=== PATIENT | male | born 1955 | race Caucasian/White ===

== ENCOUNTER 2020-08-05 21:48 | Emergency (ER) | payer MEDICARE, BC, SELFPAY ==
[2020-08-05 21:54] VITALS: BP 185/83; PULSE 85; RESP 14; TEMP 37.3; O2SAT 76; BMI 57.3
--- NOTE | 2020-08-05 22:03 | W.ED.SOB ---
HPI - SOB/Dyspnea General: Chief Complaint: Shortness of Breath/Dyspnea Stated Complaint: elevated hr Time Seen by Provider: 08/05/20 22:01 Source: patient Mode of arrival: ambulatory Limitations: no limitations History of Present Illness: HPI Narrative: 65-year-old male states that he was checking his heart rate tonight and it was in the 140s. He is having some palpitations want to have it checked out. When patient arrived he was 76% on room air. He states he wears 2 L at home especially at night. He denies any fever. Denies any cough. He denies any chest pain. Denies any worsening improving factors. MD elicited complaint: shortness of breath Associated symptoms: Reports palpitations; Deny abdominal pain, fever(s), nausea or vomiting Review of Systems Const: Denies: fever(s), chills, body aches or change in appetite Eyes: Denies: blurry vision or eye discomfort ENMT: Denies: throat pain or dental pain Card: Reports: palpitations Resp: Denies: dyspnea GI: Denies: abdominal pain, nausea, vomiting or diarrhea : Denies: dysuria Musc: Denies: neck pain or back pain Skin/Breast: Denies: rash Neuro: Denies: headache(s) Psych: Denies: depression Eugenio/Lymph: Denies: easy bruising All/Imm: Denies: urticaria Physical Exam Const: COMMON NORMALS: no acute distress, patient oriented x3 and healthy appearing HENMT: COMMON NORMALS: normocephalic and atraumatic HEAD & SCALP: normocephalic and atraumatic Eye: COMMON NORMALS: Equal, round and reactive pupils present and EOMs intact bilaterally PUPIL: Yes Equal, round and reactive pupils present Neck/C-Spine: COMMON NORMALS: full ROM and supple Chest: COMMONS NORMALS: normal inspection of the chest and normal palpation of entire chest wall Resp: COMMON NORMALS: normal respiratory effort, No retractions, No use of accessory muscles and clear to auscultation bilaterally AUSCULTATION: clear to auscultation bilaterally Cardio: COMMON NORMALS: regular rate, regular rhythm and No murmurs present (Cardio) RATE: regular rate RHYTHM: regular rhythm GI: COMMON NORMALS: Normal to inspection, nondistended, normoactive bowel sounds present, Soft to palpation, non-tender and no masses PALPATION: Yes Soft to palpation Extremity: COMMON NORMALS: normal to inspection and full ROM Neuro: COMMON NORMALS: patient oriented x3, moves all extremities and no focal motor deficits Psych: COMMON NORMALS: mental status grossly normal, Normal thought process present and cooperative THOUGHT PROCESS: Normal thought process present Skin: COMMON NORMALS: no rashes or lesions noted and no wounds GENERAL SKIN EXAM: no rashes or lesions noted Course Vital Signs: Vital signs: Vital Signs Temperature 99.1 F 08/05/20 21:54 Pulse Rate 72 08/06/20 01:30 Respiratory Rate 16 08/06/20 01:30 Blood Pressure 107/87 08/06/20 01:30 Pulse Oximetry 91 08/06/20 01:30 MDM - SOB/Dyspnea MDM Narrative: Medical decision making narrative: Patient presents here with palpitations originally. Patient was found to be hypoxic here. Patient has had to wear oxygen in the past and has a concentrator at home. He states he wears oxygen at night. He recently had Covid not believe he has a post Covid hypoxia and possible slight pneumonitis. His x-ray looked clear here. Patient given Decadron will prescribe him doxycycline. I did offer him admission but he states he feels improved and does not want to stay. He is doing well here on 2 to 3 L of oxygen he is to wear that at home at all times. He does have a pulse ox at home I informed if he has any hypoxia or increasing shortness of breath he is return immediately. He understands agrees to plan. He is to follow-up PCP in 2 to 4 days. Lab Data: Labs: Lab Results 08/05/20 08/05/20 08/05/20 Range/Units 22:40 22:40 22:40 WBC 8.9 (4.0-10.0) 10^3/ uL RBC 5.56 H (4.1-5.3) 10^6/u L Hgb 16.1 (11.7-16.6) g/dL Hct 52.2 H (42.0-52.0) % MCV 93.9 (80-94) fL MCH 29.0 (28.0-34.0) pg MCHC 30.8 (30.0-36.0) g/dL RDW 16.3 H (12.1-15.1) % Plt Count 167 (130-400) 10^3/c mm MPV 12.3 H (7.4-10.4) fL Neut % (Auto) 60.5 % Lymph % (Auto) 24.9 % Nuckolls % (Auto) 12.4 % Eos % (Auto) 1.6 % Baso % (Auto) 0.3 % Neut # (Auto) 5.35 (1.8-7.7) 10^3/u L Lymph # (Auto) 2.2 (0.8-4.8) 10^3/u L Nuckolls # (Auto) 1.1 H (0.2-0.9) 10^3/u L Eos # (Auto) 0.1 (0.0-0.8) 10^3/u L Baso # (Auto) 0.0 (0.0-0.1) 10^3/u L Nucleated RBC % (a uto) 0 % Nucleated RBCs # 0.0 /100WBC PT 13.10 (12.1-14.9) SECO NDS INR 0.96 (0.8-1.2) D-Dimer 0.41 (0-0.59) ug/mIFE U Specimen Type Sample Site ABG pH (7.35-7.45) ABG pCO2 (35-45) mmHg ABG pO2 (80.0-100.0) mmH g ABG HCO3 (22-26) mmol/L ABG Base Excess (-2.0-2.0) mmol/ L Ariel Test Hematocrit (42-52) % O2 Delivery Device O2 Liters/Min % Electronics Research Engineer ID Sodium 143 (136-145) mmol/L Potassium 4.1 (3.5-5.1) mmol/L Chloride 104 (98-107) mmol/L Carbon Dioxide 32 H (22-29) mmol/L Anion Gap 11.1 (5-19) BUN 15 (8-23) mg/dL Creatinine 0.9 (0.7-1.2) mg/dL GFR Calculation 84.7 L (90-130) mL/min Glucose 118 H (65-115) mg/dL Calculated Osmolal ity 298 H (285-295) mOsm/k g Calcium 8.8 (8.5-10.5) mg/dL Total Bilirubin 0.3 (0.15-1.2) mg/dL AST 18 (0-40) U/L ALT 19 (0-41) U/L Alkaline Phosphata se 54 (40-130) IU/L Troponin T Baselin e (0-15) ng/L Troponin T 120 Min [place] (0-15) ng/L Delta Troponin T (0-10) ABS# NT-Pro-B Natriuret Pep 394 H (0-125) pg/mL Total Protein 6.5 L (6.6-8.7) g/dL Albumin 3.7 (3.5-5.2) g/dL Globulin 2.8 (1.3-4.6) g/dL SARS-CoV-2 Ag (Rap id) (Negative) 08/05/20 08/05/20 08/06/20 Range/Units 22:40 22:49 00:10 WBC (4.0-10.0) 10^3/ uL RBC (4.1-5.3) 10^6/u L Hgb (11.7-16.6) g/dL Hct (42.0-52.0) % MCV (80-94) fL MCH (28.0-34.0) pg MCHC (30.0-36.0) g/dL RDW (12.1-15.1) % Plt Count (130-400) 10^3/c mm MPV (7.4-10.4) fL Neut % (Auto) % Lymph % (Auto) % Nuckolls % (Auto) % Eos % (Auto) % Baso % (Auto) % Neut # (Auto) (1.8-7.7) 10^3/u L Lymph # (Auto) (0.8-4.8) 10^3/u L Nuckolls # (Auto) (0.2-0.9) 10^3/u L Eos # (Auto) (0.0-0.8) 10^3/u L Baso # (Auto) (0.0-0.1) 10^3/u L Nucleated RBC % (a uto) % Nucleated RBCs # /100WBC PT (12.1-14.9) SECO NDS INR (0.8-1.2) D-Dimer (0-0.59) ug/mIFE U Specimen Type Sample Site ABG pH (7.35-7.45) ABG pCO2 (35-45) mmHg ABG pO2 (80.0-100.0) mmH g ABG HCO3 (22-26) mmol/L ABG Base Excess (-2.0-2.0) mmol/ L Ariel Test Hematocrit (42-52) % O2 Delivery Device O2 Liters/Min % Electronics Research Engineer ID Sodium (136-145) mmol/L Potassium (3.5-5.1) mmol/L Chloride (98-107) mmol/L Carbon Dioxide (22-29) mmol/L Anion Gap (5-19) BUN (8-23) mg/dL Creatinine (0.7-1.2) mg/dL GFR Calculation (90-130) mL/min Glucose (65-115) mg/dL Calculated Osmolal ity (285-295) mOsm/k g Calcium (8.5-10.5) mg/dL Total Bilirubin (0.15-1.2) mg/dL AST (0-40) U/L ALT (0-41) U/L Alkaline Phosphata se (40-130) IU/L Troponin T Baselin e 6 (0-15) ng/L Troponin T 120 Min [place] 7.30 (0-15) ng/L Delta Troponin T 1.30 (0-10) ABS# NT-Pro-B Natriuret Pep (0-125) pg/mL Total Protein (6.6-8.7) g/dL Albumin (3.5-5.2) g/dL Globulin (1.3-4.6) g/dL SARS-CoV-2 Ag (Rap id) Negative (Negative) 08/06/20 Range/Units 01:40 WBC (4.0-10.0) 10^3/ uL RBC (4.1-5.3) 10^6/u L Hgb (11.7-16.6) g/dL Hct (42.0-52.0) % MCV (80-94) fL MCH (28.0-34.0) pg MCHC (30.0-36.0) g/dL RDW (12.1-15.1) % Plt Count (130-400) 10^3/c mm MPV (7.4-10.4) fL Neut % (Auto) % Lymph % (Auto) % Nuckolls % (Auto) % Eos % (Auto) % Baso % (Auto) % Neut # (Auto) (1.8-7.7) 10^3/u L Lymph # (Auto) (0.8-4.8) 10^3/u L Nuckolls # (Auto) (0.2-0.9) 10^3/u L Eos # (Auto) (0.0-0.8) 10^3/u L Baso # (Auto) (0.0-0.1) 10^3/u L Nucleated RBC % (a uto) % Nucleated RBCs # /100WBC PT (12.1-14.9) SECO NDS INR (0.8-1.2) D-Dimer (0-0.59) ug/mIFE U Specimen Type Arterial Sample Site Radial, left ABG pH 7.34 L (7.35-7.45) ABG pCO2 58.1 H (35-45) mmHg ABG pO2 79.8 L (80.0-100.0) mmH g ABG HCO3 31.4 H (22-26) mmol/L ABG Base Excess 3.5 H (-2.0-2.0) mmol/ L Ariel Test Pos Hematocrit 52.8 H (42-52) % O2 Delivery Device Nc O2 Liters/Min 3.0 % Electronics Research Engineer ID [email or web address] Sodium (136-145) mmol/L Potassium (3.5-5.1) mmol/L Chloride (98-107) mmol/L Carbon Dioxide (22-29) mmol/L Anion Gap (5-19) BUN (8-23) mg/dL Creatinine (0.7-1.2) mg/dL GFR Calculation (90-130) mL/min Glucose (65-115) mg/dL Calculated Osmolal ity (285-295) mOsm/k g Calcium (8.5-10.5) mg/dL Total Bilirubin (0.15-1.2) mg/dL AST (0-40) U/L ALT (0-41) U/L Alkaline Phosphata se (40-130) IU/L Troponin T Baselin e (0-15) ng/L Troponin T 120 Min [place] (0-15) ng/L Delta Troponin T (0-10) ABS# NT-Pro-B Natriuret Pep (0-125) pg/mL Total Protein (6.6-8.7) g/dL Albumin (3.5-5.2) g/dL Globulin (1.3-4.6) g/dL SARS-CoV-2 Ag (Rap id) (Negative) Imaging Data^: CXR: Attestation: I personally reviewed and interpreted this imaging study as follows: My impression: no acute abnormality EKG Data^: EKG 1: Attestation: I personally reviewed and interpreted this EKG as follows: EKG Interpretation Date: 08/05/20 EKG interpretation time: 21:58 Interpretation: nsr hr [address] or t wave abnormalities qrs 102 qtc 391 EKG 2: Attestation: I personally reviewed and interpreted this EKG as follows: EKG Interpretation Date: 08/06/20 EKG interpretation time: 00:15 Interpretation: nsr hr [address] or t wave abnormalities qrs 102 qtc 366 Discharge Plan Discharge Patient Disposition: Home Clinical Impression: Palpitation, Hypoxia Condition: Stable Prescriptions: New doxycycline hyclate 100 mg capsule 100 mg PO BID 7 Days Qty: 14 RF: 0 Discharge Orders: Discharge ED (Routine); Ordered 08/06/20 Ordered By: Ramiro Monzon Other Ambulatory Orders: DME: Oxygen (Order) Location: None Selected Ordered By: Ramiro Monzon Referrals: Iglesia Rodriguez MD [Primary Care Provider] - Discharge Diet: Advance as tolerated Discharge Activity: Resume usual activity Patient Instructions: Palpitations (ED), Hypoxia (ED) Coding Level of Care Code ED Set Designer for Chg 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
--- NOTE | 2020-08-05 22:07 | XR_ITS ---
WS: [id number] Exam: XR chest 1V portable [id number] Date/Time of Exam: 08/05/2020 10:12 PM Reason For Exam: sob Comparison 05/18/2019. The heart is enlarged but unchanged in size. There are chronic pulmonary changes in the right base. N o acute infiltrates are noted. No pleural effusions. The mediastinum and bony thorax are unremarkable . XR/XR chest 1V portable [id number] IMPRESSION: 1. Cardiac enlargement unchanged. 2. Chronic changes in the right base. No acute process noted at this time.
--- NOTE | 2020-08-05 22:08 | ECG_ITS ---
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 Measurements Intervals [place] Rate: 63 P: 20 SC: 140 QRS: 8 QRSD: 93 T: 51 QT: 410 QTc: 422 Interpretive Statements SINUS RHYTHM LEFT VENTRICULAR HYPERTROPHY AND ST-T CHANGE [VOLTAGE CRITERIA PLUS ST/T ABNORMALITY] Compared to ECG 08/06/2020 00:15:49 Left ventricular hypertrophy now present ST (T wave) deviation now present Myocardial infarct finding no longer present Electronically Signed On 08-10-2020 15:29:17 RESIDENTIAL SUPPORT WORKER by Junito Navarro M.D. [email or web address] [email or web address]/store/[id number]
[2020-08-05 23:12] LABS: Basophils % 0.3 %; Eosinophils # 0.1 10^3/uL (0.0-0.8); Eosinophils % 1.6 %; Hematocrit 52.2 % (42.0-52.0); Hemoglobin 16.1 g/dL (11.7-16.6); Lymphocytes # 2.2 10^3/uL (0.8-4.8); Lymphocytes % 24.9 %; Mean Corpuscular HGB Conc 30.8 g/dL (30.0-36.0); Mean Corpuscular Volume 93.9 fL (80-94); Mean Platelet Volume 12.3 fL (7.4-10.4); Monocytes # 1.1 10^3/uL (0.2-0.9); Monocytes % 12.4 %; Neutrophils # 5.35 10^3/uL (1.8-7.7); Neutrophils % 60.5 %; Nucleated Red Blood Cells % 0 %; Platelet Count 167 10^3/cmm (130-400); Red Blood Count 5.56 10^6/uL (4.1-5.3); Red Cell Distribution Width 16.3 % (12.1-15.1); White Blood Count 8.9 10^3/uL (4.0-10.0)
[2020-08-05 23:24] LABS: INR 0.96 (0.8-1.2)
[2020-08-05 23:38] LABS: Troponin(5th) Baseline 6 ng/L (0-15)
[2020-08-05 23:39] LABS: SARS Covid-2 Antigen Negative (Negative)
[2020-08-05 23:45] LABS: D Dimer 0.41 ug/mIFEU (0-0.59)
[2020-08-05 23:47] LABS: Alanine Aminotransferase 19 U/L (0-41); Albumin Level 3.7 g/dL (3.5-5.2); Alkaline Phosphatase 54 IU/L (40-130); Anion Gap 11.1 (5-19); Aspartate Amino Transferase 18 U/L (0-40); Blood Urea Nitrogen 15 mg/dL (8-23); Calcium 8.8 mg/dL (8.5-10.5); Carbon Dioxide 32 mmol/L (22-29); Chloride 104 mmol/L (98-107); Globulin 2.8 g/dL (1.3-4.6); Glomerular Filtration Rate 84.7 mL/min (90-130); Glucose 118 mg/dL (65-115); NT Pro B Type Natriuretic Pept 394 pg/mL (0-125); Osmolality Calculated 298 mOsm/kg (285-295); Potassium 4.1 mmol/L (3.5-5.1); Sodium 143 mmol/L (136-145); Total Bilirubin 0.3 mg/dL (0.15-1.2); Total Protein 6.5 g/dL (6.6-8.7)
[2020-08-05 23:54] VITALS: BP 128/71; PULSE 78; RESP 21; O2SAT 94
--- NOTE | 2020-08-06 00:08 | ECG_ITS ---
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 Measurements Intervals [place] Rate: 77 P: 42 [place]: 182 QRS: 75 QRSD: 102 T: 1 QT: 334 QTc: 380 Interpretive Statements SINUS RHYTHM POSSIBLE ANTERIOR MYOCARDIAL INFARCTION , OF INDETERMINATE AGE [30 ms Q WAVE IN V3/V4, OR R < 0.2 mV IN V4] Compared to ECG 05/18/2019 20:51:50 Sinus bradycardia no longer present T-wave abnormality no longer present Possible ischemia no longer present Myocardial infarct finding still present Electronically Signed On 08-06-2020 17:13:39 WHEAT COMBINE DRIVER by Junito Navarro M.D. [email or web address]/store/[id number]
[2020-08-06 00:15] VITALS: BP 123/76; PULSE 76; RESP 21; O2SAT 93
[2020-08-06 01:00] VITALS: BP 127/75; PULSE 77; RESP 22; O2SAT 94
[2020-08-06 01:30] VITALS: BP 107/87; PULSE 72; RESP 16; O2SAT 91
[2020-08-06] MEDS: dexamethasone 10 mg/mL INJ IVP (01:31)
[2020-08-06 01:45] LABS: ABG PCO2 58.1 mmHg (35-45); ABG PH Result 7.34 (7.35-7.45); Arterial Blood Gas Hematocrit 52.8 % (42-52); Base Excess ABG 3.5 mmol/L (-2.0-2.0); Blood Gas Allen Test Pos; Blood Gas Sample Site Radial, left; Blood Gas Sample Type Arterial; HCO3 ABG 31.4 mmol/L (22-26); Oxygen Device NC; PO2 ABG 79.8 mmHg (80.0-100.0)
[2020-08-06 02:01] VITALS: BP 107/87; PULSE 73; RESP 26; TEMP 36.6; O2SAT 93
== END 2020-08-06 02:01 | disposition home or self-care (01) ==
PROVIDERS: Emergency Provider Emergency Medicine; PCP Family Medicine
DX: R00.2 Palpitations (principal); R09.02 Hypoxemia
CPT/HCPCS: 12345; 36600; 71045; 80053; 82803; 83880; 84484; 85025; 85378; 85610; 87426; 93005; 96374; 99283; 99284; J1100

== ENCOUNTER → 2020-09-06 14:46 | Outpatient (BNVA) | payer MEDICARE, BC, SELFPAY | PROVIDERS: PCP Family Medicine; Visit Provider Internal Medicine Pulmonary Disease | DX: Z20.822 Contact with and (suspected) exposure to COVID-19 (principal); R09.02 Hypoxemia | CPT/HCPCS: 87635 ==

== ENCOUNTER 2020-09-10 07:49 | Outpatient (CLI) | payer MEDICARE, BC, SELFPAY ==
--- NOTE | 2020-09-10 08:45 | USCV_ITS ---
Herson Ma Age: 65 Gender: M : 1955 Exam Date: 09/10/2020 08:10 Ordering Phys: Joby Jones MD Technologist: Jennifer Mayfield Exam Location: [facility] [place] Indication: LV FUNCTION AND PULMONARY ARTERY PRESSURE BP: / HR: 66 Rhythm: Sinus Technical Quality: Poor because of body habitus MEASUREMENTS (Male / Female) Normal Values 2D ECHO LV Diastolic Diameter PLAX 5.6 cm 4.2 - 5.9 / 3.9 - 5.3 cm LV Systolic Diameter PLAX 4.4 cm IVS Diastolic Thickness 0.9 cm 0.6 - 1.0 / 0.6 - 0.9 cm IVS Systolic Thickness 1.1 cm LVPW Diastolic Thickness 1.1 cm 0.6 - 1.0 / 0.6 - 0.9 cm LVPW Systolic Thickness 1.7 cm LVOT Diameter 2.0 cm LV Ejection Fraction 2D Teich 42.8 % LA Diameter 5.5 cm LA Width 3.3 cm LA Height 6.2 cm RA Width 2.4 cm RA Height 5.1 cm M-MODE LV Diastolic Diameter MM 8.9 cm 4.2 - 5.9 / 3.9 - 5.3 cm LV Systolic Diameter MM 6.3 cm LV Ejection Fraction MM Teich 53.2 % IVS Diastolic Thickness MM 0.9 cm 0.6 - 1.0 / 0.6 - 0.9 cm IVS Systolic Thickness MM 1.9 cm LVPW Diastolic Thickness MM 1.1 cm 0.6 - 1.0 / 0.6 - 0.9 cm LVPW Systolic Thickness MM 2.9 cm Aortic Annulus Diameter 3.5 cm LA Ao Ratio MM 2.0 MV E Point Septal Separation 0.9 cm DOPPLER AV Peak Velocity 152.0 cm/s LVOT Peak Velocity 79.0 cm/s AV Area Cont Eq vti 1.4 cm squared AV Area Cont Eq pk 1.7 cm squared MV Area PHT 2.2 cm squared Mitral E to A Ratio 1.3 MV E' Velocity 59.0 cm/s TR Peak Velocity 210.0 cm/s TR Peak Gradient 17.6 mmHg TV Peak E Velocity 62.0 cm/s PV Peak Velocity 56.0 cm/s RV Acceleration Time 0.1 s RV Ejection Time 0.2 s RV AcT/ET 0.3 FINDINGS Left Ventricle Possibly normal LV size ejection fraction (visual). Segmental wall motion analysis difficult. Right Ventricle Possibly of normal size Right Atrium Right atrium not well visualized. Left Atrium Possibly of normal size Mitral Valve No gross abnormalities noted Aortic Valve Thickened aortic valve. Tricuspid Valve Trace to mild tricuspid valve regurgitation. Pulmonic Valve Pulmonic valve not well visualized. Pericardium No pericardial effusion. Aorta Normal aortic annulus size. CONCLUSIONS Possibly normal LV size ejection fraction (visual)-55%. Thickened aortic valve. Trace to mild tricuspid valve regurgitation. No pericardial effusion. The right ventricle appears to be of normal size Could not calculate the PA pressure because of the poor Doppler signals Technically very difficult study because of the poor ultrasonic window Dr Don Tee MD [facility] (Electronically Signed) Final Date: 11 September 2020 06:05 S
--- NOTE | 2020-09-10 14:02 | PFTS_ITS ---
Date of Study:09/10/20 Date of Dictation: 09/11/20 MECHANICS: Postbronchodilator forced vital capacity (FVC) is reduced 49%. Postbronchodilator forced expiratory volume in one second (FEV1) is severely reduced 47%. FEV1/FVC is reduced. There is no significant response to bronchodilators FLOW VOLUME LOOP: Sloping of the expiratory limb suggestive of airway obstruction . LUNG VOLUMES: Not measured DIFFUSING CAPACITY FOR CARBON MONOXIDE: Mildly reduced 68% . INTERPRETATION: The spirometry suggestive of severe obstructive ventilatory defect. Lung volumes not measured. There is no significant response to bronchodilators. Mild gas transfer. Please correlate clinically MTDD
== END 2020-09-10 07:50 | disposition home or self-care (01) ==
LOC: RAD 07:51 → RT 10:54
PROVIDERS: PCP Family Medicine; Visit Provider Internal Medicine Pulmonary Disease
DX: R09.02 Hypoxemia (principal); I08.2 Rheumatic disorders of both aortic and tricuspid valves
CPT/HCPCS: 93306; 94060; 94618; 94729; J7611

== ENCOUNTER 2020-10-02 20:00 | Outpatient (CLI) | payer MEDICARE, BC, SELFPAY | END 2020-10-02 20:01 | disposition home or self-care (01) | LOC: SLEEP 10-03 08:28 | PROVIDERS: PCP Family Medicine; Visit Provider Internal Medicine Pulmonary Disease | DX: G47.33 Obstructive sleep apnea (adult) (pediatric) (principal) | CPT/HCPCS: 95811 ==

== ENCOUNTER → 2020-10-17 16:24 | Outpatient (BNVA) | payer MEDICARE, BC, SELFPAY | PROVIDERS: PCP Family Medicine; Visit Provider Internal Medicine Cardiovascular Disease | DX: I50.33 Acute on chronic diastolic (congestive) heart failure (principal); R09.02 Hypoxemia; R06.02 Shortness of breath; R94.31 Abnormal electrocardiogram [ECG] [EKG]; I48.91 Unspecified atrial fibrillation | CPT/HCPCS: 80048; 83880 ==

== ENCOUNTER 2020-11-20 20:00 | Outpatient (CLI) | payer MEDICARE, BC, SELFPAY | END 2020-11-20 20:01 | disposition home or self-care (01) | LOC: SLEEP 11-21 09:25 | PROVIDERS: PCP Family Medicine; Visit Provider Internal Medicine Pulmonary Disease | DX: G47.33 Obstructive sleep apnea (adult) (pediatric) (principal) | CPT/HCPCS: 95811 ==

== ENCOUNTER 2021-03-13 20:02 | Emergency (ER) | payer MEDICARE, BC, SELFPAY ==
--- NOTE | 2021-03-13 20:03 | XRR_ITS ---
PROCEDURE INFORMATION: Exam: XR Chest Exam date and time: 03/13/2021 8:03 PM Age: 65 years old Clinical indication: Shortness of breath; Patient HX: SOB; Additional info: Cp TECHNIQUE: Imaging protocol: XR of the chest. Views: 1 view. COMPARISON: CR XR chest 1V portable [id number] 08/05/2020 10:09 PM FINDINGS: Lungs: Similar linear scarring at the right lung base. No focal consolidation. Pleural spaces: Unremarkable. No pleural effusion. No pneumothorax. Heart/Mediastinum: Similar mild cardiomegaly. Bones/joints: Visualized osseous structures are intact. XR/XR chest 1V portable [id number] IMPRESSION: Stable exam, no acute findings.
[2021-03-13 20:06] VITALS: BP 125/75; PULSE 96; RESP 24; TEMP 36.8; O2SAT 90; BMI 60.3
[2021-03-13 20:28] VITALS: BP 135/113; PULSE 84; RESP 22; O2SAT 93
[2021-03-13 20:44] LABS: Basophils % 0.3 %; Eosinophils # 0.1 10^3/uL (0.0-0.8); Eosinophils % 1.3 %; Hematocrit 49.1 % (42.0-52.0); Hemoglobin 15.5 g/dL (11.7-16.6); Lymphocytes # 2.3 10^3/uL (0.8-4.8); Lymphocytes % 29.2 %; Mean Corpuscular HGB Conc 31.6 g/dL (30.0-36.0); Mean Corpuscular Hemoglobin 31.4 pg (28.0-34.0); Mean Corpuscular Volume 99.6 fl (80-94); Mean Platelet Volume 10.7 fL (7.4-10.4); Monocytes # 0.8 10^3/uL (0.2-0.9); Monocytes % 10.4 %; Neutrophils % 58.2 %; Nucleated Red Blood Cells % 0 %; Platelet Count 171 10^3/cmm (130-400); Red Blood Count 4.93 10^6/uL (4.1-5.3); Red Cell Distribution Width 13.4 % (12.1-15.1); White Blood Count 7.9 10^3/uL (4.0-10.0)
[2021-03-13] MEDS: metoprolol tartrate 50 mg Tablet PO (20:44)
--- NOTE | 2021-03-13 20:50 | ED_ITS ---
HPI - General Adult General: Chief complaint: General Medical Stated complaint: cp Time Seen by Provider: 03/13/21 20:25 Source: patient Mode of arrival: ambulatory Limitations: no limitations History of Present Illness: HPI narrative: 65-year-old male has a long history of A. fib and states that last month his regulatory affairs intern decreased his metoprolol from 100 mg to 50 she is concerned that he was becoming too bradycardic. He states that since then he has had episodes of palpitations. He states that tonight his heart rate was in the 130s he can feel it racing. He denies any chest pain denies any shortness of breath. Denies any worsening improving factors. Associated symptoms: Reports palpitations; Deny chest pain, dyspnea, headache(s), nausea, rash or vomiting Review of Systems Const: Denies: fever(s), chills, body aches or change in appetite Eyes: Denies: blurry vision or eye discomfort ENMT: Denies: throat pain or dental pain Card: Reports: palpitations; Denies: chest pain Resp: Denies: dyspnea GI: Denies: abdominal pain, nausea, vomiting or diarrhea : Denies: dysuria Musc: Denies: neck pain or back pain Skin/Breast: Denies: rash Neuro: Denies: headache(s) Psych: Denies: depression Eugenio/Lymph: Denies: easy bruising All/Imm: Denies: urticaria PFSH ED PFSH: Medical History Benign essential hypertension GERD (gastroesophageal reflux disease) Hx of renal calculi Hx: recurrent pneumonia Peripheral edema Varicose veins of both legs with edema Surgical History History of repair of rotator cuff Family History Sister CAD (coronary artery disease) Cancer Lupus Casey-Stickler syndrome Dementia Lung disease Brother Stroke Denies family history of Diabetes Clotting disorder Chronic kidney disease (CKD) Suicide Anesthesia complication Bleeding disorder Social History Smoking and tobacco status: former smoker Quit status (tobacco): has quit using tobacco Year quit tobacco: 2002 cigars 29yrhx Second hand smoke exposure: No Smoking risk assessment/counseling performed?: Yes Alcohol intake: never Lives independently: Yes Household members: spouse Housing: House Marital status: service: No Current occupational status: employed Pets and animals: Yes History of recent travel: No Current gender identity: Male Physical Exam Const: COMMON NORMALS: no acute distress and patient oriented x3 NUTRITIONAL APPEARANCE: obese HENMT: COMMON NORMALS: normocephalic and atraumatic HEAD & SCALP: normocephalic and atraumatic Eye: COMMON NORMALS: Equal, round and reactive pupils present and EOMs intact bilaterally PUPIL: Yes Equal, round and reactive pupils present Neck/C-Spine: COMMON NORMALS: full ROM and supple Chest: COMMONS NORMALS: normal inspection of the chest and normal palpation of entire chest wall Resp: COMMON NORMALS: normal respiratory effort, No retractions, No use of accessory muscles and clear to auscultation bilaterally AUSCULTATION: clear to auscultation bilaterally Cardio: COMMON NORMALS: No murmurs present (Cardio) RATE: tachycardic RHYTHM: abnormal rhythm irregularly irregular GI: COMMON NORMALS: Normal to inspection, nondistended, normoactive bowel sounds present, Soft to palpation, non-tender and no masses PALPATION: Yes Soft to palpation Extremity: COMMON NORMALS: normal to inspection and full ROM Neuro: COMMON NORMALS: patient oriented x3, moves all extremities and no focal motor deficits Psych: COMMON NORMALS: mental status grossly normal, Normal thought process present and cooperative THOUGHT PROCESS: Normal thought process present Skin: COMMON NORMALS: no rashes or lesions noted and no wounds GENERAL SKIN EXAM: no rashes or lesions noted Course Vital Signs: Vital signs: Vital Signs Temperature 98.3 F 03/13/21 20:06 Pulse Rate 84 03/13/21 20:28 Respiratory Rate 22 H 03/13/21 20:28 Blood Pressure 135/113 03/13/21 20:28 Pulse Oximetry 93 03/13/21 20:28 MDM - General Adult MDM Narrative: Medical decision making narrative: Doing presents here with Rajesh guzman with RVR. Patient converted here with Cardizem and metoprolol he feels much improved. I will increase his metoprolol back to 100 he is to follow-up with his regulatory affairs intern next week. He is return if worsening. He understands agrees to plan. Lab Data: Labs: Lab Results 03/13/21 03/13/21 03/13/21 Range/Units 20:37 20:37 20:37 WBC 7.9 (4.0-10.0) 10^3/ uL RBC 4.93 (4.1-5.3) 10^6/u L Hgb 15.5 (11.7-16.6) g/dL Hct 49.1 (42.0-52.0) % MCV 99.6 H (80-94) fl MCH 31.4 (28.0-34.0) pg MCHC 31.6 (30.0-36.0) g/dL RDW 13.4 (12.1-15.1) % Plt Count 171 (130-400) 10^3/c mm MPV 10.7 H (7.4-10.4) fL Neut % (Auto) 58.2 % Lymph % (Auto) 29.2 % Dyer % (Auto) 10.4 % Eos % (Auto) 1.3 % Baso % (Auto) 0.3 % Neut # (Auto) 4.60 (1.8-7.7) 10^3/u L Lymph # (Auto) 2.3 (0.8-4.8) 10^3/u L Dyer # (Auto) 0.8 (0.2-0.9) 10^3/u L Eos # (Auto) 0.1 (0.0-0.8) 10^3/u L Baso # (Auto) 0.0 (0.0-0.1) 10^3/u L Nucleated RBC % (a uto) 0 % Nucleated RBCs # 0.0 /100WBC Sodium 143 (136-145) mmol/L Potassium 4.1 (3.5-5.1) mmol/L Chloride 101 (98-107) mmol/L Carbon Dioxide 33 H (22-29) mmol/L Anion Gap 13.1 (5-19) BUN 18 (8-23) mg/dL Creatinine 0.5 L (0.7-1.2) mg/dL GFR Calculation 166.9 H (90-130) mL/min Glucose 88 (65-115) mg/dL Calculated Osmolal ity 297 H (285-295) mOsm/k g Calcium 8.7 (8.5-10.5) mg/dL Total Bilirubin 0.3 (0.15-1.2) mg/dL AST 35 (0-40) U/L ALT 44 H (0-41) U/L Alkaline Phosphata se 51 (40-130) IU/L Troponin T Baselin e 7 (0-15) ng/L Total Protein 6.9 (6.6-8.7) g/dL Albumin 4.1 (3.5-5.2) g/dL Globulin 2.8 (1.3-4.6) g/dL Imaging Data^: CXR: Attestation: I personally reviewed and interpreted this imaging study as follows: Radiologist's impression: [id number] [address] XRay Report Signed Patient: Herson Ma Unit #: [id number] : 1955 Age/Sex: 65 / M ADM Date: 03/13/21 Loc: ER Room/Bed: Attending Dr: Ordering Provider/Ordering MD: Ramiro Monzon MD Date of Service: 03/13/21 Procedure(s): XR chest 1V portable [id number] Accession Number(s): [id number] Report Number: [id number] PROCEDURE INFORMATION: Exam: XR Chest Exam date and time: 03/13/2021 8:03 PM Age: 65 years old Clinical indication: Shortness of breath; Patient HX: SOB; Additional info: Cp TECHNIQUE: Imaging protocol: XR of the chest. Views: 1 view. COMPARISON: CR XR chest 1V portable [id number] 08/05/2020 10:09 PM FINDINGS: Lungs: Similar linear scarring at the right lung base. No focal consolidation. Pleural spaces: Unremarkable. No pleural effusion. No pneumothorax. Heart/Mediastinum: Similar mild cardiomegaly. Bones/joints: Visualized osseous structures are intact. XR/XR chest 1V portable [id number] IMPRESSION: Stable exam, no acute findings. Dictated By: Balbir Antonio DO Signed By: Balbir Antonio DO Signed Date/Time: 03/13/212031 DD/ 29 EKG Data^: EKG 1: Attestation: I personally reviewed and interpreted this EKG as follows: EKG interpretation date: 03/13/21 EKG interpretation time: 20:24 Interpretation: afib rvr hr [address] or t wave abnormalities qrs 107 qtc 367 Computer generated interpretation: Chest X-Ray 03/13/21 20:03 IMPRESSION: Stable exam, no acute findings. Discharge Plan Discharge Patient Disposition: Home Clinical Impression: Atrial fibrillation Qualifiers: Atrial fibrillation type: unspecified Qualified Code(s): I48.91 - Unspecified atrial fibrillation Condition: Stable Prescriptions: Changed metoprolol succinate 50 mg tablet extended release 24 hr 100 mg PO DAILY Qty: 30 RF: 3 No Action esomeprazole magnesium 40 mg capsule,delayed release(DR/EC) 80 mg PO DAILY RF: 0 paroxetine HCl 20 mg tablet 20 mg PO DAILY RF: 0 simethicone [Gas Relief (simethicone)] 180 mg capsule 180 mg PO BID PRNRF: 0 ciclopirox-salicylic acid 0.77-2 % shampoo topical RF: 0 fluticasone propionate 50 mcg/actuation spray,suspension 2 spray intranasal DAILY RF: 0 allopurinol 300 mg tablet 300 mg PO DAILY RF: 0 budesonide-formoterol [Symbicort] 80-4.5 mcg/actuation HFA aerosol inhaler 2 puff inhalation BID Qty: 10.2 RF: 3 magnesium 200 mg tablet 200 mg PO DAILY RF: 0 fluticasone propionate [Flonase Allergy Relief] 50 mcg/actuation spray,suspension 1 spray intranasal DAILY RF: 0 prednisolone acetate (PF) 1 % drops,suspension 1 drp ophthalmic (eye) BID RF: 0 elderberry fruit 200 mg capsule PO RF: 0 levocetirizine [Xyzal] 5 mg tablet 5 mg PO DAILY PRNRF: 0 cetirizine [Zyrtec] 10 mg tablet 5 mg PO DAILY PRNRF: 0 guaifenesin [Mucinex] 600 mg tablet extended release 12hr 600 mg PO Q12H PRNRF: 0 Eliquis 5 mg tablet 5 mg PO BID Qty: 60 RF: 5 Discharge Orders: Discharge ED (Routine); Ordered 03/13/21 Ordered By: Ramiro Monzon Referrals: Iglesia Rodriguez MD [Primary Care Provider] - Discharge Diet: Advance as tolerated Discharge Activity: Resume usual activity Patient Instructions: Atrial Fibrillation (ED) Coding Level of Care Code ED 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
[2021-03-13 21:02] LABS: Troponin(5th) Baseline 7 ng/L (0-15)
[2021-03-13 21:03] LABS: Alanine Aminotransferase 44 U/L (0-41); Albumin Level 4.1 g/dL (3.5-5.2); Alkaline Phosphatase 51 IU/L (40-130); Anion Gap 13.1 (5-19); Aspartate Amino Transferase 35 U/L (0-40); Blood Urea Nitrogen 18 mg/dL (8-23); Calcium 8.7 mg/dL (8.5-10.5); Carbon Dioxide 33 mmol/L (22-29); Chloride 101 mmol/L (98-107); Globulin 2.8 g/dL (1.3-4.6); Glomerular Filtration Rate 166.9 mL/min (90-130); Glucose 88 mg/dL (65-115); Osmolality Calculated 297 mOsm/kg (285-295); Potassium 4.1 mmol/L (3.5-5.1); Sodium 143 mmol/L (136-145); Total Bilirubin 0.3 mg/dL (0.15-1.2); Total Protein 6.9 g/dL (6.6-8.7)
[2021-03-13 21:39] VITALS: BP 125/81; PULSE 84; RESP 22; TEMP 36.8; O2SAT 93
== END 2021-03-13 21:40 | disposition home or self-care (01) ==
PROVIDERS: Emergency Provider Emergency Medicine; PCP Family Medicine
DX: I48.91 Unspecified atrial fibrillation (principal); Z79.01 Long term (current) use of anticoagulants; I10 Essential (primary) hypertension; Z87.891 Personal history of nicotine dependence
CPT/HCPCS: 71045; 80053; 84484; 85025; 96374; 99283; J3490

== ENCOUNTER → 2021-04-04 09:06 | Outpatient (BNVA) | payer MEDICARE, BC, SELFPAY | PROVIDERS: PCP Family Medicine; Visit Provider Internal Medicine Cardiovascular Disease | DX: R94.31 Abnormal electrocardiogram [ECG] [EKG] (principal); Z20.822 Contact with and (suspected) exposure to COVID-19 | CPT/HCPCS: 80048; 85025; 85610; 86850; 86900; 87635 ==

== ENCOUNTER 2021-04-09 07:39 | Day surgery (SDC) | payer MEDICARE, BC, SELFPAY ==
[2021-04-09] VITALS (18 sets, daily range): BP systolic 105–138; BP diastolic 58–80; PULSE 55–75; RESP 7–25; TEMP 36.1; O2SAT 90–95; BMI 59.0
--- NOTE | 2021-04-09 07:30 | XACV_ITS ---
Exam Room: 1 Ht: 183 cm Wt: 197 kg BSA: 3.28 m2 Gender: Male : 1955 Exam Priority: Routine Procedure(s): Procedure Description: Diagnostic procedure Procedure Description: Left Heart Catheterization Procedure Description: Left ventriculography Procedure Description: Coronary Angiography Randal MOSS; Diagnostic Cath Status: Elective Diagnostic Findings * The left main is a medium caliber vessel which was found to have an ostial eccentric narrowing of around 20%. No other significant stenotic lesions were noted. * Left anterior descending artery is a medium caliber vessel which appears to wrap around the LV apex. The artery was found to have mild diffuse irregular narrowing of around 20%. * The left circumflex artery is a medium caliber vessel which also was found to have diffuse intimal irregularities with no significant the stenotic lesions. * The right coronary artery is a medium to large caliber dominant vessel which also was found to have diffuse intimal irregularities in the mid and distal segments. Conclusions 1. This is a 66-year-old white male with history of hypertension, dyslipidemia, new onset of atrial fibrillation, presented with shortness of breath and some atypical chest discomfort. His EKG showed diffuse nonspecific ST-T changes. Because of his morbid obesity, the noninvasive studies were difficult to perform. For further evaluation of his coronary status, a cardiac catheterization was recommended. Patient underwent left heart catheterization with left and right coronary angiogram and LV angiogram today. Findings are as follows. 2. Mild diffuse coronary artery disease. Markedly elevated left ventricular end-diastolic pressure of 29mHg. Normal LV ejection fraction 55%. Recommendations * Continue current medical management and risk factor modification. Interventional RX Recommendation: none Diagnostic RX Recommendation: medical therapy and/or counseling LV EDP: 29 mmHg Ventriculography Ejection Fraction: 55.0 % Left Ventriculography Findings: * The LV gram was performed the JIMENES position. The LV cavity appears to be of normal size. The overall ejection fraction was around 55%. No significant mitral valve prolapse or mitral regurgitation. The LVEDP was 29 mmHg. Pressures Phase:Rest AO : 82 / 58 ( 70 ) @ 7:56:00 AM 95 / 65 ( 78 ) @ 8:02:00 AM 129 / 80 ( 99 ) @ 8:13:00 AM 127 / 76 ( 94 ) @ 8:13:00 AM LV : 132 / 13 / 28 @ 8:12:00 AM 136 / 13 / 31 @ 8:13:00 AM 135 / 13 / 30 @ 8:13:00 AM Valves Phase:DefaultPhase AV : 6.0 @ 9:34:32 AM AV Mean Gradient: 8.0 @ 9:34:32 AM Clinical Evaluation EBL: 5mL-10mL Procedural Details Procedure Consent Obtained. Pre-Procedure Time Out. Identified patient by full name and date of as verbalized by the patient/guarantor. Does the consent match the physician's order: Yes. Accurate & Complete Informed Consent: Yes. Inpatient/Outpatient History & Physical on Chart: Yes. If H&P is completed, is and addenduem needed: No; If yes, is the addendum complete: N/A. Relevant Radiology Images available: Yes. The risks, benefits, and alternatives of sedation and/or procedure were discussed by physician. The patient agrees to continue. Procedure started. [facility] Clinical Fraility Score: 5: Mildly Frail. Jewel Inserter Indications: Pre-operative Evaluation/Cardiac Arrythmia. Chest Pain Symptom Assessment: Atypical Angina. Cardiovascular Instability: No. Correct patient, site and procedure confirmed by cath team. PERRLA. Strong, equal hand pattern illustrator bilaterally. Lungs clear x 5 lobes. IV Site on Arrival: 20 gauge in the left forearm. IV Fluids: 0.9% NaCl at KVO. 0 mL infused prior to optical laboratory manager. Pre Procedural Pulses: bilateral dorsalis pedis was 3+. Pre Procedural Pulses: bilateral posterior tibial was 1+. Pre Procedural Pulses: bilateral radial was 3+. Oxygen started at 3liters/min via nasal canula. right groin was prepped with chloroprep then draped in the usual sterile fashion. right radial was prepped with chloroprep then draped in the usual sterile fashion. Physician notified. Baseline sample Acquired. HR: 68 BPM. Patient's daughter is in CPRU room #4. Dr. Tee will update after the procedure. Madelin Suero RN circulating. Equipment: 6F - Radial. Cardiac Cath Pack. ACIST Manifold Kit Model BT 2000. Heparinized Saline (2 units/mL), 1000 mL bag. Physician arrived. Physician scrubbed in. Immediate Pre-Procedure Time Out. Correct Patient: Yes; Correct Procedure: Yes; Correct Site: Yes; Correct Patient Position: Yes; Correct Supplies: Yes; Dried Flammable Prep: Yes; Blood Products Available: T & S completed pre procedure. Lidocaine 1% infiltrated to the right radial. Arterial access obtained. A 5 latvian William catheter in over the exchange wire. Multiple views taken of right coronary artery. Catheter redirected to the LCA, unable to cannulate. Catheter removed over the exchange wire. A 5 latvian TIG catheter in over the exchange wire. Multiple views taken of left coronary artery. Catheter removed over the exchange wire. A 5 latvian Angled Pig catheter in over the exchange wire. EDP Sample taken: LV 132/13,28; HR: 70 BPM; SpO2: 92%. LV gram performed in JIMENES @ 10 mL/second for a total of 30 mL. EDP Sample taken: LV 136/13,31; HR: 70 BPM; SpO2: 92%. Pullback taken: LV 135/13,30; AO 129/80(99); Mean: 8mmHg, Peak to Peak: 6mmHg, SEP: 19sec/min; HR: 72 BPM; SpO2: 92%. Catheter removed over the exchange wire. Physcian scrubbed out. TR band placed. Hemostasis obtained. Post Procedure: Pulses reassessed and unchanged. PERRLA. Strong, equal hand pattern illustrator bilaterally. No VTE prophylaxis required. Medication's Wasted: Lidocaine 1% = 18 mL. Medication's Wasted: Heparin = 1000 units. Medication's Wasted: Nitro = 49.8 mg. Total IV fluids: 78 mL. Post-op diagnosis: Mild CAD with LV diastolic dysfunction. Complications: none. Estimated blood loss: 5mL-10mL. Procedure completed. Patient transferred by wheelchair to 1st floor. Vital chart was stopped. Access Site Site: Right Radial artery Sheath Size: 6 Fr Hemostasis Success: Unsuccessful Procedure Medications Start: 8:50 AM Stop: 8:50 AM Medication: Versed Amount: 1 mg Route: I.V. Start: 8:50 AM Stop: 8:50 AM Medication: Fentanyl Amount: 50 mcg Route: I.V. Start: 8:50 AM Stop: 8:50 AM Medication: Versed Amount: 1 mg Route: I.V. Start: 8:50 AM Stop: 8:50 AM Medication: Fentanyl Amount: 25 mcg Route: I.V. Start: 8:50 AM Stop: 8:50 AM Medication: Verapamil Amount: 5 mg Route: I.A. Start: 8:51 AM Stop: 8:51 AM Medication: Nitrogylcerin Amount: 200 mcg Route: I.A. Start: 8:54 AM Stop: 8:54 AM Medication: Heparin Amount: 5000 units Route: I.V. I, the attending physician, have reviewed and verified all procedure medications. Yes, all medications given per verbal order History/Risk Factors Hypertension: Yes Dyslipidemia: No Peripheral Arterial Disease (PAD): No Myocardial Infarction (NH): No Obesity: Yes Renal Disease: No Tobacco Use: Former Prior Interventions PCI: No CABG: No Valve Surgery: No Report Signatures Finalized by Dr Don Tee MD [facility] on 04/09/2021 10:14 PM
[2021-04-09] MEDS: diphenhydrAMINE 50 mg Capsule PO (07:57)
--- NOTE | 2021-04-09 08:27 | W.PM.OPSUD ---
Surgery/Procedure H&P Update DATE OF PROCEDURE: April 09, 2021 DATE H&P PERFORMED: 03/31/21 H&P UPDATE INFORMATION: I have reviewed H&P completed within last 30 days, I have examined patient prior to procedure and No changes to prior documentation PREOP DIAGNOSIS: ASHD PRIMARY INDICATION FOR PROCEDURE: Atrial fibrillation/abnormal EKG/shortness of breath PLANNED PROCEDURE: Operation Date: 04/09/21 08:30 Proposed Procedures p Cardiac Catheterization(Left) - Don Tee MD PATIENT REASSESSED PRIOR TO SEDATION, WITH NO CHANGE NOTED: Yes PHYSICAL EXAM: alert, oriented x 3, clear to auscultation bilaterally and regular rate & rhythm (Irregularly irregular rhythm) AIRWAY EVAL/ANESTHESIA PLAN: normal airway, see other exam findings, ASA III, Monitored Anesthesia, Local Anesthesia, Risks, benefits & alternatives of sedation and/or procedure discussed and Patient agrees to continue as planned
[2021-04-09] MEDS: metoprolol succinate ER (24 HR) 50 mg Tablet PO (10:35)
[2021-04-09] MEDS: acetaminophen 325 mg Tablet 650 MG PO (12:09)
--- NOTE | 2021-04-09 12:58 | PC.NURSE ---
received into room 107 from manager labor relations at 0950.report received.pt is alert an awake.oriented x 4.right wrist with tr band on and inflated.right hand is warm to touch and with brisk capillary refill.palpable radial pulse noted distal to tr band..and no hematoma noted.instructed in activity restrictions and instructed to notify staff for any bleeding,pain,numbness..or for any concerns at all.pt verb understanding of instruction
--- NOTE | 2021-04-09 14:03 | PC.NURSE ---
tr band slowly deflated and finally removed at 1330.vss.no hematoma noted.right hand remains warm to touch and with brisk capillary refill.site dressed with 2x2 and secured with biocclusive drsg
--- NOTE | 2021-04-09 14:24 | PC.NURSE ---
discharge instructions given and explained.pt verb understanding of instructions.discharged via w/c to exit.son to drive pt home
== END 2021-04-09 14:28 | disposition home or self-care (01) ==
LOC: CCL 07:42 → CSU 08:22
PROVIDERS: PCP Family Medicine; Visit Provider Internal Medicine Cardiovascular Disease
DX: I48.91 Unspecified atrial fibrillation (principal); I25.10 Atherosclerotic heart disease of native coronary artery without angina pectoris; R94.31 Abnormal electrocardiogram [ECG] [EKG]; R06.02 Shortness of breath; I10 Essential (primary) hypertension; E78.5 Hyperlipidemia, unspecified; E66.01 Morbid (severe) obesity due to excess calories; Z68.43 Body mass index [BMI] 50.0-59.9, adult; Z87.891 Personal history of nicotine dependence
CPT/HCPCS: 36415; 93452; C1769; C1887; C1894; J1644; J2250; J3010; J3490; J7030; Q0163; Q9967

== ENCOUNTER → 2021-04-15 12:04 | Outpatient (BNVA) | payer MEDICARE, BC, SELFPAY | PROVIDERS: PCP Family Medicine; Visit Provider Nurse Practitioner Family | DX: I10 Essential (primary) hypertension (principal) | CPT/HCPCS: 80048 ==

== ENCOUNTER 2021-10-04 14:29 | Emergency (ER) | payer MEDICARE, BC, SELFPAY ==
[2021-10-04 14:56] VITALS: BP 137/84; PULSE 73; RESP 20; TEMP 36.7; O2SAT 93; BMI 47.6
--- NOTE | 2021-10-04 15:51 | ED_ITS ---
HPI - General Adult General: Chief complaint: General Medical Stated complaint: blood in stool Time Seen by Provider: 10/04/21 15:51 Source: patient Mode of arrival: ambulatory Limitations: no limitations History of Present Illness: 66-year-old male presents emergency room he had gastric bypass surgery earlier this week in [place]. He is complaining that he is felt well will have a bowel movement all week he feels full like he has to have 1 he evidently has tried suppositories tried manual disimpaction but is not been able to pass anything he has been straining to try to pass distillates caus es some abdominal discomfort because of his recent surgery. Because manipulation the rectal area he has passed a little bit of blood as well. He is not had any vomiting. He has not had any bloating he says otherwise when he is at rest he feels fine. Onset (ago): day(s) Location: abdomen Radiation: non-radiation Severity: mild Quality: aching Pain Consistency: intermittent Relieving factors: rest Exacerbating factors: other (Attempted bowel movements) Associated symptoms: Deny chest pain, confusion, cough, diaphoresis, decreased appetite, dyspnea, fevers/chills, headache(s), malaise, nausea, rash, palpitations, seizures, short of breath, syncope, vomiting or weakness Treatments prior to arrival: none Review of Systems Const: Reports: change in appetite and change in weight; Denies: fever(s), chills, body aches, malaise or diaphoresis Card: Denies: chest pain, palpitations or syncope Resp: Denies: dyspnea GI: Denies: nausea or vomiting : Denies: flank pain, difficulty urinating, dysuria, urinary frequency, urinary urgency, urinary hesitancy, difficulty starting urination or change in urine stream Skin/Breast: Denies: rash Neuro: Denies: headache(s) or confusion PFS ED PFSH: Medical History Benign essential hypertension GERD (gastroesophageal reflux disease) Hx of renal calculi Hx: recurrent pneumonia Peripheral edema Varicose veins of both legs with edema Surgical History History of repair of rotator cuff Family History Sister CAD (coronary artery disease) Cancer Lupus Casey-Stickler syndrome Dementia Lung disease Brother Stroke Denies family history of Diabetes Clotting disorder Chronic kidney disease (CKD) Suicide Anesthesia complication Bleeding disorder Social History Smoking and tobacco status: never smoked Quit status (tobacco): has quit using tobacco Year quit tobacco: 2001 cigars 29yrhx Second hand smoke exposure: No Smoking risk assessment/counseling performed?: Yes Alcohol intake: never Lives independently: Yes Household members: spouse Housing: House Marital status: service: No Current occupational status: employed Pets and animals: Yes History of recent travel: No Current gender identity: Male Physical Exam Const: GENERAL APPEARANCE: cooperative and comfortable ORIENTATION/CONSCIOUSNESS: Yes awake, Yes oriented to person, Yes oriented to place and Yes oriented to time HENMT: COMMON NORMALS: normocephalic, atraumatic and hearing grossly normal bilaterally HEAD & SCALP: normocephalic and atraumatic Resp: COMMON NORMALS: normal respiratory effort, No retractions, No use of accessory muscles and clear to auscultation bilaterally AUSCULTATION: clear to auscultation bilaterally Cardio: COMMON NORMALS: regular rate, regular rhythm and No murmurs present (Cardio) RATE: regular rate RHYTHM: regular rhythm GI: COMMON NORMALS: Soft to palpation and No hepatosplenomegaly present AUSCULTATION: Yes normoactive bowel sounds PALPATION: Yes Soft to palpation, No Tenderness to palpation present (GI), No Guarding due to palpation present (GI) and Yes No hepatosplenomegaly present Extremity: COMMON NORMALS: normal to inspection, capillary refill normal, no clubbing, cyanosis or edema, no calf tenderness and no pedal edema Neuro: SENSORIUM/ORIENTATION: Yes oriented to person, Yes oriented to place and Yes oriented to time Skin: COMMON NORMALS: no rashes or lesions noted GENERAL SKIN EXAM: no rashes or lesions noted Course Vital Signs: Vital signs: Vital Signs Temperature 98.1 F 10/04/21 16:23 Pulse Rate 71 10/04/21 16:23 Respiratory Rate 20 H 10/04/21 16:23 Blood Pressure 143/78 10/04/21 16:23 Pulse Oximetry 95 10/04/21 16:23 [facility] - General Adult Medical Decision Making Recommend moderate activity continued p.o. intake he can try warm fluids try to stimulate a bowel movement he can repeat the rectal suppository would avoid any enemas for now because of his recent surgery. Recommend that he contact his bariatric surgeon as soon as possible next week. It would be concerning if developed a fever nausea or vomiting but he has not had any that to this point. Medical Records I reviewed the patient's medical records. Discharge Plan Discharge Patient Disposition: Home Clinical Impression: Constipation by delayed colonic transit, S/P bariatric surgery Condition: Stable Prescriptions: No Action paroxetine HCl 20 mg tablet 20 mg PO DAILY 0RF simethicone [Gas Relief (simethicone)] 180 mg capsule 180 mg PO BID PRN (Reason: gas) 0RF ciclopirox-salicylic acid 0.77-2 % shampoo topical 0RF fluticasone propionate 50 mcg/actuation spray,suspension 2 spray intranasal DAILY 0RF Rx Instructions: administer into each nostril allopurinol 300 mg tablet 300 mg PO DAILY 0RF albuterol sulfate 2.5 mg /3 mL (0.083 %) solution for nebulization 2.5 mg inhalation Q6H PRN (Reason: shortness of breath or wheezing) 0RF topiramate 25 mg tablet 25 mg PO BID 0RF phentermine 15 mg capsule 15 mg PO DAILY 0RF omeprazole 40 mg capsule,delayed release(DR/EC) 40 mg PO DAILY 0RF finasteride 5 mg tablet 5 mg PO DAILY 0RF prednisolone acetate (PF) 1 % drops,suspension 1 drp ophthalmic (eye) BID 0RF elderberry fruit 200 mg capsule PO 0RF cetirizine [Zyrtec] 10 mg tablet 5 mg PO DAILY PRN (Reason: Allergy Symptoms) 0RF guaifenesin [Mucinex] 600 mg tablet extended release 12hr 600 mg PO Q12H PRN (Reason: Cold Symptoms) 0RF Eliquis 5 mg tablet 5 mg PO BID Qty: 60 2RF Rx Instructions: 340B program. budesonide-formoterol [Symbicort] 80-4.5 mcg/actuation HFA aerosol inhaler 2 puff inhalation BID Qty: 10.2 2RF Rx Instructions: 340B program. metoprolol succinate 50 mg tablet extended release 24 hr 50 mg PO DAILY Qty: 90 2RF isosorbide mononitrate 30 mg tablet extended release 24 hr See Rx Instructions .ROUTE .COMPLEX Qty: 90 3RF Dose Instruction: Take 1 tablet by mouth once daily Rx Instructions: Take 1 tablet by mouth once daily Discharge Orders: Discharge ED (Routine); Ordered 10/04/21 Ordered By: Tobi Lofton Referrals: Iglesia Rodriguez MD [Primary Care Provider] - Discharge Diet: As Directed Discharge Activity: Increase activity as tolerated Patient Instructions: Opioid Safety Activity Restrictions/Additional Instructions: Follow-up with your bariatric surgeon as soon as you are able. If you develop nausea or vomiting or signs of GI bleeding return. Coding Level of Care Code ED Naprapath for Chg Fwd Exam Detailed
[2021-10-04 16:20] VITALS: BP 143/78; PULSE 71; RESP 20; TEMP 36.7; O2SAT 95
[2021-10-04 16:23] VITALS: BP 143/78; PULSE 71; RESP 20; TEMP 36.7; O2SAT 95
== END 2021-10-04 16:25 | disposition home or self-care (01) ==
PROVIDERS: Emergency Provider Family Medicine; PCP Family Medicine
DX: K59.01 Slow transit constipation (principal); Z98.84 Bariatric surgery status; Z79.01 Long term (current) use of anticoagulants; I10 Essential (primary) hypertension; Z87.891 Personal history of nicotine dependence
CPT/HCPCS: 99282

== ENCOUNTER → 2022-03-12 13:14 | Outpatient (BNVA) | payer MEDICARE, BC, SELFPAY | PROVIDERS: PCP Family Medicine; Visit Provider Internal Medicine Pulmonary Disease | DX: J44.0 Chronic obstructive pulmonary disease with (acute) lower respiratory infection (principal); R00.2 Palpitations; E66.2 Morbid (severe) obesity with alveolar hypoventilation; J96.91 Respiratory failure, unspecified with hypoxia; Z68.39 Body mass index [BMI] 39.0-39.9, adult; Z98.84 Bariatric surgery status; Z87.891 Personal history of nicotine dependence | CPT/HCPCS: 99214 ==

== ENCOUNTER 2022-04-30 11:43 | Emergency (ER) | payer MEDICARE, BC, SELFPAY ==
[2022-04-30 11:49] VITALS: BP 107/71; PULSE 86; RESP 18; TEMP 36.2; O2SAT 96
[2022-04-30 11:50] VITALS: BMI 37.3
--- NOTE | 2022-04-30 12:17 | W.ED.EXTPRO ---
HPI - Extremity Problem General: Chief complaint: Extremity Injury, Lower Stated complaint: leg injury Time Seen by Provider: 04/30/22 12:13 Source: patient Mode of arrival: ambulatory History of Present Illness: 67-year-old male is on chronic anticoagulation in the form of Eliquis he has multiple lower extremity varicosities bumped 1 as he was walking this morning had significant amount of bleeding from. He has had this problem in the past as well. No other injury no other complaints. MD Complaint: other (Active bleeding) Onset (ago): minute(s) Location: right Relieving factors: other (Direct pressure) Exacerbating factors: nothing Associated symptoms: Deny chest pain, fever(s) or rash Review of Systems Const: Denies: fever(s), chills, body aches, change in appetite, fatigue or malaise ENMT: Denies: throat pain, ear or mastoid pain, nasal discharge or nasal congestion Card: Denies: chest pain, edema, dyspnea on exertion or orthopnea Resp: Denies: dyspnea, productive cough or non-productive cough GI: Denies: abdominal pain, nausea or vomiting : Denies: flank pain, difficulty urinating, dysuria, urinary frequency or urinary urgency Skin/Breast: Denies: rash or pruritus PFSH ED PFSH: Medical History Benign essential hypertension GERD (gastroesophageal reflux disease) Hx of renal calculi Hx: recurrent pneumonia Peripheral edema Varicose veins of both legs with edema Surgical History History of repair of rotator cuff Family History Sister CAD (coronary artery disease) Cancer Lupus Casey-Stickler syndrome Dementia Lung disease Brother Stroke Denies family history of Diabetes Clotting disorder Chronic kidney disease (CKD) Suicide Anesthesia complication Bleeding disorder Social History Smoking and tobacco status: never smoked Quit status (tobacco): has quit using tobacco Year quit tobacco: 2001 cigars 29yrhx Second hand smoke exposure: No Smoking risk assessment/counseling performed?: Yes Alcohol intake: never Lives independently: Yes Household members: spouse Housing: House Marital status: service: No Current occupational status: employed Pets and animals: Yes History of recent travel: No Current gender identity: Male Physical Exam Const: GENERAL APPEARANCE: cooperative and comfortable ORIENTATION/CONSCIOUSNESS: Yes awake, Yes oriented to person, Yes oriented to place and Yes oriented to time HENMT: COMMON NORMALS: normocephalic, atraumatic and hearing grossly normal bilaterally HEAD & SCALP: normocephalic and atraumatic Resp: COMMON NORMALS: normal respiratory effort, No retractions, No use of accessory muscles and clear to auscultation bilaterally AUSCULTATION: clear to auscultation bilaterally Cardio: COMMON NORMALS: regular rate, regular rhythm and No murmurs present (Cardio) RATE: regular rate RHYTHM: regular rhythm GI: COMMON NORMALS: Soft to palpation and No hepatosplenomegaly present AUSCULTATION: Yes normoactive bowel sounds PALPATION: Yes Soft to palpation, No Tenderness to palpation present (GI), No Guarding due to palpation present (GI) and Yes No hepatosplenomegaly present Extremity: OTHER: Multiple varicosities in the right lower leg there is a single varicosity with a small superficial laceration 1 to 2 mm but is actively bleeding. Direct pressure held. Anesthetized and a single suture of 8 with 3-0 Vicryl placed with good hemostasis Neuro: SENSORIUM/ORIENTATION: Yes oriented to person, Yes oriented to place and Yes oriented to time Skin: COMMON NORMALS: no rashes or lesions noted GENERAL SKIN EXAM: no rashes or lesions noted Procedures Laceration Laceration 1: Site: lower extremity Side (If applicable): right Description: other (Superficial laceration of varicose vein) Depth: simple, single layer Local Anesthetic: lidocaine 1% and with epi Amount of anesthesia used (mL): 1 Skin layer closed with: vicryl Size (cm): 3-0 Number of sutures: 1 Technique: other (Single [id number] suture) Course Vital Signs: Vital signs: Vital Signs Temperature 97.1 F L 04/30/22 11:49 Pulse Rate 74 04/30/22 12:36 Respiratory Rate 16 04/30/22 12:23 Blood Pressure 107/71 04/30/22 11:49 Pulse Oximetry 91 04/30/22 12:36 Oxygen Delivery Me thod 04/30/22 11:49 MDM - Extremity (Nontraumatic) Medical Decision Making Assessment Xylocaine with epinephrine 1 a single [id number] suture was placed with good hemostasis. Advised patient of suture removed in 5 to 7 days return if has any further bleeding. Medical Records I reviewed the patient's medical records. Discharge Plan Discharge Patient Disposition: Home Clinical Impression: Bleeding from varicose vein, Varicose vein of leg, Chronic anticoagulation Condition: Stable Prescriptions: New mupirocin 2 % ointment 1 applic topical BID Qty: 15 0RF No Action paroxetine HCl 20 mg tablet 20 mg PO DAILY simethicone [Gas Relief (simethicone)] 180 mg capsule 180 mg PO BID PRN (Reason: gas) ciclopirox-salicylic acid 0.77-2 % shampoo topical fluticasone propionate 50 mcg/actuation spray,suspension 2 spray intranasal DAILY Rx Instructions: administer into each nostril albuterol sulfate 2.5 mg /3 mL (0.083 %) solution for nebulization 2.5 mg inhalation Q6H PRN (Reason: shortness of breath or wheezing) topiramate 25 mg tablet 25 mg PO BID phentermine 15 mg capsule 15 mg PO DAILY finasteride 5 mg tablet 5 mg PO DAILY prednisolone acetate (PF) 1 % drops,suspension 1 drp ophthalmic (eye) BID elderberry fruit 200 mg capsule PO cetirizine [Zyrtec] 10 mg tablet 5 mg PO DAILY PRN (Reason: Allergy Symptoms) guaifenesin [Mucinex] 600 mg tablet extended release 12hr 600 mg PO Q12H PRN (Reason: Cold Symptoms) budesonide-formoterol [Symbicort] 80-4.5 mcg/actuation HFA aerosol inhaler 2 puff inhalation BID Qty: 10.2 2RF Hold Instructions: Doctor's Order Rx Instructions: 340B program. Eliquis 5 mg tablet 5 mg PO BID Qty: 180 2RF Rx Instructions: 340B program. allopurinol 300 mg tablet 300 mg PO DAILY Qty: 90 1RF isosorbide mononitrate 30 mg tablet extended release 24 hr See Rx Instructions .ROUTE .COMPLEX Qty: 90 3RF Dose Instruction: Take 1 tablet by mouth once daily Rx Instructions: Take 1 tablet by mouth once daily metoprolol succinate 50 mg tablet extended release 24 hr 50 mg PO DAILY Qty: 90 2RF Discharge Orders: Discharge ED (Routine); Ordered 04/30/22 Ordered By: Tobi Lofton Referrals: Jose L Fritz, [Primary Care Provider] - Discharge Diet: Usual diet Discharge Activity: Resume usual activity Patient Instructions: Opioid Safety, Pain Management Activity Restrictions/Additional Instructions: Apply topical antibiotic ointment prescribed to you today twice daily to the area that was bleeding. The sutures should be removed in 4 to 5 days. If you have any further bleeding return to the emergency room. Coding Level of Care Code ED Deputy Sheriff K9 Handler for Shaan Dooley
[2022-04-30 12:23] VITALS: PULSE 74; RESP 16; O2SAT 91
[2022-04-30 12:36] VITALS: PULSE 74; O2SAT 91
== END 2022-04-30 12:38 | disposition home or self-care (01) ==
PROVIDERS: Emergency Provider Family Medicine; PCP Family Medicine
DX: I83.891 Varicose veins of right lower extremity with other complications (principal); Z79.01 Long term (current) use of anticoagulants; Z87.891 Personal history of nicotine dependence; I10 Essential (primary) hypertension
CPT/HCPCS: 99283

== ENCOUNTER → 2022-05-19 11:10 | Outpatient (BNVA) | payer MEDICARE, BC, SELFPAY | PROVIDERS: PCP Family Medicine; Visit Provider Internal Medicine Cardiovascular Disease | DX: I48.91 Unspecified atrial fibrillation (principal); I10 Essential (primary) hypertension; J44.0 Chronic obstructive pulmonary disease with (acute) lower respiratory infection; G47.33 Obstructive sleep apnea (adult) (pediatric); Z79.01 Long term (current) use of anticoagulants | CPT/HCPCS: 99214 ==

== ENCOUNTER 2022-07-14 08:59 | Outpatient (CLI) | payer MEDICARE, BC, SELFPAY | END 2022-07-14 09:00 | disposition home or self-care (01) | LOC: RT 09:04 | PROVIDERS: PCP Family Medicine; Visit Provider Internal Medicine Pulmonary Disease | DX: J44.0 Chronic obstructive pulmonary disease with (acute) lower respiratory infection (principal); R06.02 Shortness of breath; R09.82 Postnasal drip; R00.2 Palpitations; E66.2 Morbid (severe) obesity with alveolar hypoventilation; Z68.43 Body mass index [BMI] 50.0-59.9, adult; Z87.891 Personal history of nicotine dependence; Z98.84 Bariatric surgery status; I48.91 Unspecified atrial fibrillation; Z79.01 Long term (current) use of anticoagulants | CPT/HCPCS: 94010; 94618; 94726; 94729; 99214 ==

== ENCOUNTER 2022-10-13 06:00 | Outpatient (CLI) | payer MEDICARE, BC, SELFPAY ==
--- NOTE | 2022-10-13 06:15 | US_ITS ---
WS: [id number] TESTICULAR ULTRASOUND HISTORY: Testicular mass COMPARISON: None available. TECHNIQUE: Real-time and color Doppler imaging or utilized to perform a testicular ultrasound. Right testicle: 3.9 cm x 2.3 cm x 2.0 cm. Normal sized testicle. Mild heterogeneity. Vascularity is decreased but normal otherwise. There is no mass. Normal color Doppler is present throughout. Systolic and diastolic velocities are both present. No significant hydrocele. Right epididymis: RIGHT spermatocele measures 1.3 x 1.3 x 1.4 cm. Also noted is a small varicocele. Left testicle: 3.8 cm x 2.1 cm x 1.7 cm. Normal size and echogenicity. No mass or torsion. Normal color Doppler is present throughout. Systolic and diastolic velocities are both present. No significant hydrocele. Left epididymis: Normal epididymis with no increased vascularity. There is a cystic mass in the inferior LEFT scrotum measuring 1.3 x 1.1 x 1.3 cm. This does not appea r within the testicle. May be related to the atrophy did miss. No soft tissue component. Benign in ap pearance. Varicocele. US/US scrotum [id number] IMPRESSION: 1. No testicular mass identified. No solid mass. 2. Bilateral varicoceles. 3. RIGHT spermatocele. 4. Additional cystic mass in the inferior LEFT testicle. May also be associate d with the epididymis. Benign in appearance and external to the testicle.
== END 2022-10-13 06:01 | disposition home or self-care (01) ==
LOC: RAD 06:04
PROVIDERS: PCP Family Medicine; Visit Provider Family Medicine
DX: N50.89 Other specified disorders of the male genital organs (principal); I86.1 Scrotal varices; N43.42 Spermatocele of epididymis, multiple; N44.2 Benign cyst of testis
CPT/HCPCS: 76870

== ENCOUNTER → 2022-12-01 11:41 | Outpatient (BNVA) | payer MEDICARE, BC, SELFPAY | PROVIDERS: PCP Family Medicine; Visit Provider Internal Medicine Cardiovascular Disease | DX: I48.91 Unspecified atrial fibrillation (principal); J44.0 Chronic obstructive pulmonary disease with (acute) lower respiratory infection; I83.93 Asymptomatic varicose veins of bilateral lower extremities; G47.33 Obstructive sleep apnea (adult) (pediatric); R00.2 Palpitations; Z79.01 Long term (current) use of anticoagulants | CPT/HCPCS: 99214 ==

== ENCOUNTER 2022-12-24 09:18 | Outpatient (CLI) | payer MEDICARE, BC, SELFPAY ==
--- NOTE | 2022-12-24 10:00 | USCV_ITS ---
Herson Ma Age: 67 Gender: M : 1955 Exam Date: 12/24/2022 09:28 Ordering Phys: Don Tee MD ([email or web address]) Technologist: JING Exam Location: [facility] [place] Indication: HISTORY: Varicose veins. PROCEDURES: Venous duplex imaging was performed in bilateral lower extremities. The following venous structures were evaluated: common femoral vein, profunda vein, proximal portion of the greater saphenous vein, superficial femoral vein, and the popliteal vein. Serial compression, augmentation maneuvers, and spectral Doppler flow evaluation were performed. An evaluation for venous insufficiency was also completed. FINDINGS: The veins were found to be easily compressible with spontaneous blood flow. Non pulsatile flow pattern. Venous reflux was noted in the left popliteal vein with the reflux time of 1.01-second On the right side, the proximal, distal and below-knee segments of the greater saphenous vein were found to have refluxes lasting for 3.27, 4.61 and 4.62 seconds respectively. These segments were measuring 0.67, 0.82 and 0.81 cm respectively in diameter and at a depth of 2.5, 1.99 and 0.37 cm respectively from the surface. On the left side, Significant refluxes were noted at the level of the greater saphenous vein segments distal to the saphenofemoral junction, mid and below-knee segments of the greater saphenous vein. The reflux times where 0.606, 0.74 and 4.62 seconds respectively. These segments were measuring 1.17, 0.49 and 0.54 cm respectively and at the depth of 1.39, 2 and 0.77 cm from the surface. CONCLUSIONS 1. No evidence of DVT in the above-mentioned identifiable veins. #2. Significant venous reflux of greater than 500 ms were noted on the right side at the proximal, distal and below-knee segments of the greater saphenous vein. But the below-knee segment was found to be very superficial 3. On the left side Significant venous reflux of greater than 1000 ms was noted at the popliteal vein. The greater saphenous vein segments on the left side were found to have reflexes of greater than 500 ms at the saphenofemoral junction, mid and below-knee segments. The below- knee segment was found to be very superficial. The venous dimensions, depth from the surface and reflux times are as mentioned above Dr Don Tee MD FAC (Electronically Signed) Final Date: 07 January 2023 17:12 S
== END 2022-12-24 09:19 | disposition home or self-care (01) ==
LOC: RAD 09:18
PROVIDERS: PCP Family Medicine; Visit Provider Internal Medicine Cardiovascular Disease
DX: I83.93 Asymptomatic varicose veins of bilateral lower extremities (principal)
CPT/HCPCS: 93970

== ENCOUNTER 2023-02-03 20:00 | Outpatient (CLI) | payer MEDICARE, BC, SELFPAY | END 2023-02-03 20:01 | disposition home or self-care (01) | LOC: SLEEP 02-04 03:48 | PROVIDERS: PCP Family Medicine; Visit Provider Family Medicine | DX: G47.33 Obstructive sleep apnea (adult) (pediatric) (principal) | CPT/HCPCS: 95811 ==

== ENCOUNTER → 2023-03-23 09:42 | Outpatient (BNVA) | payer MEDICARE, BC, SELFPAY | PROVIDERS: PCP Family Medicine; Visit Provider Family Medicine | DX: F41.9 Anxiety disorder, unspecified (principal); F32.A Depression, unspecified; M10.9 Gout, unspecified; I10 Essential (primary) hypertension; K90.9 Intestinal malabsorption, unspecified; Z12.5 Encounter for screening for malignant neoplasm of prostate; E11.9 Type 2 diabetes mellitus without complications; E83.52 Hypercalcemia; E83.42 Hypomagnesemia | CPT/HCPCS: 80053; 80061; 81000; 82043; 82306; 82607; 82728; 82746; 83036; 83735; 84443; 84550; 85025; G0103 ==

== ENCOUNTER → 2023-04-14 10:53 | Outpatient (BNVA) | payer MEDICARE, BC, SELFPAY | PROVIDERS: PCP Family Medicine; Visit Provider Internal Medicine Cardiovascular Disease | DX: I10 Essential (primary) hypertension (principal); I83.90 Asymptomatic varicose veins of unspecified lower extremity; I48.91 Unspecified atrial fibrillation; J44.0 Chronic obstructive pulmonary disease with (acute) lower respiratory infection; E66.2 Morbid (severe) obesity with alveolar hypoventilation; Z68.36 Body mass index [BMI] 36.0-36.9, adult; I83.893 Varicose veins of bilateral lower extremities with other complications; Z79.01 Long term (current) use of anticoagulants | CPT/HCPCS: 99213 ==

== ENCOUNTER → 2023-04-20 14:04 | Outpatient (BNVA) | payer MEDICARE, BC, SELFPAY | PROVIDERS: PCP Family Medicine; Visit Provider Thoracic Surgery (Cardiothoracic Vascular Surgery) | DX: I83.893 Varicose veins of bilateral lower extremities with other complications (principal) | CPT/HCPCS: 99203 ==

== ENCOUNTER 2023-06-15 05:47 | Day surgery (SDC) | payer MEDICARE, BC, SELFPAY ==
[2023-06-15] VITALS (8 sets, daily range): BP systolic 114–135; BP diastolic 63–85; PULSE 48–59; RESP 16–18; TEMP 36.2–36.9; O2SAT 92–100; BMI 36.3
--- NOTE | 2023-06-15 06:30 | PM.HP ---
Providers/Chief Complaint Admitting Physician: Dr. Keen Primary Care Provider: Iglesia Rodriguez MD Chief Complaint: 59554 I83.122 History of Present Illness Herson Ma is a 68 year old male whom I saw originally in consultation in my clinic on April 20 upon referral for bilateral lower extremity highly symptomatic varicose veins with a history of spontaneous rupture a few months previously on the right side and approximate 1 year ago on the left. No history for DVT or major trauma. He has had a history of prior morbid obesity with subsequent bariatric surgery to include gastric bypass and duodenal switch. He has lost over 200 pounds. He does not use tobacco. Prior venous duplex study has been completed and revealed: 1.? No evidence of DVT in the above-mentioned identifiable veins. ?#2.? Significant venous reflux of greater than 500 ms were noted on the ?right side at the proximal, distal and below-knee segments of the ?greater saphenous vein.? But the below-knee segment was found to be ?very superficial ?3.? On the left side Significant venous reflux of greater than 1000 ms ?was noted at the popliteal vein.? The greater saphenous vein segments ?on the left side were found to have reflexes of greater than 500 ms at ?the saphenofemoral junction, mid and below-knee segments.? The below- ?knee segment was found to be very superficial. ?The venous dimensions, depth from the surface and reflux times are as ?mentioned above. He does have substantial tortuosity which may make catheter advancement problematic or not possible. Other options would include stab phlebectomies though they would be quite extensive at this stage. It would be most beneficial if we could decompress much of his system through catheter ablation and then at a later date consider staged phlebectomy for problematic areas. Rationale for this was carefully discussed to Mr. Ma is eager to proceed. Review of Systems Const: Denies: fever(s) or chills Card: Denies: chest pain, palpitations or irregular heart rhythm Resp: Denies: dyspnea or productive cough GI: Denies: abdominal pain or nausea : Denies: flank pain or difficulty urinating Musc: Reports: back pain and extremity swelling; Denies: neck pain Neuro: Denies: headache(s) or numbness in extremities Psych: Denies: anxiety or depression Medications/Allergies Home Medications Medication Instructions Recorded Confirmed Last Taken Type simethicone 180 mg capsule (Gas 180 mg PO BID PRN gas 08/16/20 06/15/23 06/14/23 History Relief (simethicone)) guaifenesin 600 mg tablet, 600 mg PO Q12H PRN Cold Symptoms 08/22/20 06/15/23 1 Month Ago History extended release 12 hr (Mucinex) ~05/16/23 mupirocin 2 % topical ointment 1 applic topical BID #15 grams 04/30/22 06/15/23 Unknown Rx allopurinol 300 mg tablet 300 mg PO DAILY #90 tabs 06/18/22 06/15/23 06/14/23 Rx finasteride 5 mg tablet 5 mg PO DAILY #90 tabs 06/18/22 06/15/23 06/14/23 Rx fluticasone propionate 50 2 spray intranasal DAILY #16 grams 07/30/22 06/15/23 3 Days Ago Rx mcg/actuation nasal ~06/12/23 spray,suspension apixaban 5 mg tablet (Eliquis) 5 mg PO BID #180 tabs 09/17/22 06/15/23 06/11/23 Rx paroxetine HCl 20 mg tablet 20 mg PO DAILY #30 tabs 03/23/23 06/15/23 06/14/23 Rx cetirizine 10 mg tablet (Zyrtec) 5 mg PO PRN PRN Allergy Symptoms 06/14/23 06/15/23 1 Month Ago History ~05/16/23 isosorbide mononitrate 30 mg 30 mg PO DAILY 06/14/23 06/15/23 06/14/23 History tablet,extended release 24 hr metoprolol succinate 50 mg 25 mg PO DAILY 06/14/23 06/15/23 06/14/23 History tablet,extended release 24 hr Allergies Allergy/AdvReac Type Severity Reaction Status Date / Time No Known Allergies Allergy Verified 06/15/23 06:07 PFSH Acute PFSH: Medical History URI with cough and congestion Benign essential hypertension Hx of renal calculi Hx: recurrent pneumonia Varicose veins of both legs with edema Peripheral edema GERD (gastroesophageal reflux disease) Surgical History History of bariatric surgery Hx of cholecystectomy History of repair of rotator cuff Family History Sister CAD (coronary artery disease) Cancer Lupus Casey-Stickler syndrome Dementia Lung disease Brother Stroke Denies family history of Diabetes Clotting disorder Chronic kidney disease (CKD) Suicide Anesthesia complication Bleeding disorder Social History Smoking and tobacco/nicotine status: never used tobacco/nicotine Quit status (tobacco/nicotine): has quit using Year quit tobacco: 2001 cigars 29yrhx Second hand smoke exposure: No Alcohol intake: never Substance/Drug Use: never Lives independently: Yes Household members: spouse Housing: House Marital status: service: No Current occupational status: employed Pets and animals: Yes Do you think of yourself as: Straight/Heterosexual Current gender identity: Male Vitals/I&O/Wt Last Vital Signs Temp 97.6 F 06/15/23 06:18 Pulse 58 L 06/15/23 06:18 Resp 18 06/15/23 06:18 BP 117/69 06/15/23 06:18 Pulse Ox 96 06/15/23 06:18 O2 Del Method Room Air 06/15/23 06:18 Weight last 48 hrs Weight 268 lb Physical Exam Const: COMMON NORMALS: patient oriented x3 and alert ORIENTATION/CONSCIOUSNESS: Yes oriented to person, Yes oriented to place and Yes oriented to time HENMT: COMMON NORMALS: normocephalic HEAD & SCALP: normocephalic Neck/C-Spine: COMMON NORMALS: full ROM, supple, no JVD and No carotid bruits GENERAL: Yes trachea midline CERVICAL SPINE: Yes cervical ROM normal Chest: COMMONS NORMALS: normal inspection of the chest and normal palpation of entire chest wall Resp: COMMON NORMALS: normal respiratory effort, No use of accessory muscles, clear to auscultation bilaterally and percussion normal EFFORT & INSPECTION: Yes able to speak in complete sentences and Yes symmetric chest movement AUSCULTATION: clear to auscultation bilaterally PERCUSSION: percussion normal Cardio: COMMON NORMALS: no JVD, regular rate, regular rhythm, S1 normal heart sound present, S2 normal heart sound present, No gallops present (Cardio), No murmurs present (Cardio) and No rub (Cardio) JUGULAR VENOUS DISTENTION: no JVD RATE: regular rate RHYTHM: regular rhythm HEART SOUNDS: S1 normal heart sound present and S2 normal heart sound present Extremity: NARRATIVE EXTREMITY EXAM: Substantial varicosities of lower extremities bilaterally with prior history for spontaneous rupture. CEAP classification C4A. Most prominent cluster is in the medial distal aspects of the right thigh. There is substantial tortuosity which may make catheter advancement problematic. Prior history for spontaneous rupture occurred on the lateral aspects of the legs bilaterally. Negative Homans' sign. No evidence for embolic phenomenon distally. There are some chronic skin color changes bilaterally Neuro: COMMON NORMALS: patient oriented x3, no focal motor deficits and no sensory deficits noted SENSORIUM/ORIENTATION: Yes alert, Yes oriented to person, Yes oriented to place and Yes oriented to time GAIT: Yes Normal gait present A&P Assessment and plan (1) Ruptured varicose vein: We will plan for staged therapies for his varicose veins, initially on the right side and will attempt radiofrequency catheter ablation, though it may be problematic to pass the catheter related to his tortuosity. Related to superficial aspects of his veins of the lower extremities, we will attempt to concentrate on the thigh region. I did discuss that if were not able to perform this procedure on the right side related to anatomy evaluation and during today's preop ultrasound exam, we may attempt this on the left side. He was agreeable. I also discussed the potential need for future phlebectomies or other procedures to address these problematic and extensive varicose veins. Details of risk the procedure were Reviewed including infection major bleeding, failure to benefit, pain after the procedure. Deep venous thrombosis or possible pulmonary embolism. He stated understanding and wishes to proceed. Attestations Medical Necessity Statement*: Substantial varicose veins lower extremities bilateral with history of bilateral spontaneous rupture. Coding Level of Care Code Acute Code for [facility] Diagnoses Ruptured varicose vein I83.899
[2023-06-15] MEDS: diazePAM 5 mg Tablet PO (06:47)
[2023-06-15] MEDS: sodium chloride 0.9% 1,000 ML 30 ML IV (06:48)
--- NOTE | 2023-06-15 07:00 | USCV_ITS ---
Herson Ma Age: 68 Gender: M : 1955 Exam Date: 06/15/2023 07:05 Ordering Phys: Agapito Keen MD (Andy) ([email or web address]) Technologist: Bull Major Exam Location: [facility] – [place] Indication: RIGHT GSV ABLATION GUIDANCE FINDINGS: The saphenofemoral junction appears to be patent. The inferior epigastric vein also appears to be patent CONCLUSIONS The right greater saphenous vein appears to be patent from the patent inferior epigastric vein to the saphenofemoral junction. No thrombosis is noted in this area. Dr Don Tee MD FACC (Electronically Signed) Final Date: 16 June 2023 08:58 S
[2023-06-15] MEDS: lidocaine 2% INJ 20 mL INJECTION (07:39)
[2023-06-15] MEDS: fentaNYL 50 mcg/mL INJ 2mL IVP (07:58)
--- NOTE | 2023-06-15 08:12 | PM.OP ---
Operative Report Date of procedure: June 15, 2023 Pre-op diagnosis: Symptomatic bilateral lower extremity varicose veins with documented venous reflux and history of spontaneous rupture Post-op diagnosis: same Procedure done: Radiofrequency catheter ablation of the right greater saphenous vein Pathology: none sent Surgeon: Agapito Keen MD Anesthesia: MAC and Local Estimated blood loss (mL): 2 Complications: None Condition: stable Brief History: Mr. Ma is a 68-year-old gentleman with bilateral lower extremity severe varicosities and documented venous reflux of greater than 500 ms. He had a history of spontaneous varicose rupture bilaterally, the most recent to the right lower extremity several months ago. Recommendation to consider RF catheter ablation in an attempt to reduce the number of varicosities in severity were discussed with the understanding that due to his numerous tributaries, further therapies may well be required including phlebectomies. Details of risk the procedure were carefully and frankly discussed. Appropriate consents have been reviewed and signed. Procedure: Mr. Ma was adequately positioned on the gurney and comfort confirmed. Right lower extremity is appropriately marked as the operative side. The insufficient right saphenous vein was verified by ultrasound and diagrammed on the overlying skin. The varicose tributary veins and suitable access sites were identified and mapped. The affected right lower extremity was prepped and draped in the usual sterile fashion. Appropriate timeout was completed and confirmed by all members present. Mr. Ma was placed in reverse Trendelenburg position. Tumescent was instilled in the skin overlying the access site for local anesthesia. The vein was accessed just medial and distal to the right knee using ultrasound guidance and the Seldinger technique, a guidewire was introduced through the needle, which was then exchanged over the guidewire for a 7F sheath. The RF catheter was placed on the sterile field, flushed and wiped down, prepared, and connected by a sterile cable. The patient was placed in Trendelenburg position. After RF catheter position was verified by ultrasound, tumescent anesthesia was infiltrated, under ultrasound guidance, precisely into the perivenous compartment along the entire length of vein. After the RF catheter position was again confirmed with ultrasound imaging, and under direct external compression along the length of the heating element, RF energy was applied. The vein was segmentally ablated until the treatment length is completed. Device temperature was maintained at 120 +/- degrees C with an initial power level of 40W dropping to below 20W for each treatment. Total vein length treated 32 cm. Vein diameter 2 cm. Total cycles of RF 16. Time 3 minutes and 12 seconds. Due to his substantial weight loss following bariatric surgery previously, his soft tissues and subcutaneous tissues are fairly lax thereby resulting in tumescent fluid rapidly dissipating across large areas and not concentrating in the perivascular space. This did create some discomfort for the mid and lower portion during ablation therapy, most presumably related to thermal effects of the saphenous nerve. Nonetheless, post procedure inspection revealed good thrombosis of the right greater saphenous vein. Repeat ultrasound of the right greater saphenous vein was performed, confirming successful treatment. Indeed, prior to the application of energy, early thrombus formation could be found at several areas along the vein after catheter placement. The catheter and sheath were withdrawn and hemostasis established with direct pressure. After assuring hemostasis, the skin incision over the saphenous vein was closed with a bandage and graduated compression stocking(s) was applied from the level of the foot to the most proximal length of the thigh.
== END 2023-06-15 08:40 | disposition home or self-care (01) ==
PROVIDERS: PCP Family Medicine; Visit Provider Thoracic Surgery (Cardiothoracic Vascular Surgery)
DX: I83.893 Varicose veins of bilateral lower extremities with other complications (principal); I10 Essential (primary) hypertension; Z87.891 Personal history of nicotine dependence; Z98.1 Arthrodesis status; E66.01 Morbid (severe) obesity due to excess calories; Z68.36 Body mass index [BMI] 36.0-36.9, adult
CPT/HCPCS: 36475; C1887; J3010; J7030; J7040

== ENCOUNTER 2023-06-22 07:37 | Outpatient (CLI) | payer MEDICARE, BC, SELFPAY ==
--- NOTE | 2023-06-22 06:15 | USCV_ITS ---
Herson Ma Age: 68 Gender: M : 1955 Exam Date: 06/22/2023 08:00 Ordering Phys: Agapito Keen MD (Andy) ([email or web address] [place] Technologist: JING Exam Location: [facility] [place] Indication: S/P RIGHT GSV ABLATION DONE X1 WK AGO HISTORY: S/P RIGHT GSV ABLATION DONE 1WEEK AGO PROCEDURES: Venous duplex imaging was performed in only the right lower extremity. The following venous structures were evaluated: common femoral vein, profunda vein, proximal portion of the greater saphenous vein, superficial femoral vein, and the popliteal vein. In addition, the posterior tibial and peroneal trunk were evaluated. Serial compression, augmentation maneuvers, and spectral Doppler flow evaluation were performed. FINDINGS: No evidence of DVT seen in any vessel visualized at this time. Right GSV compressible 3.0cm from Jx. Non-compressiable from prox-below knee at surgical site. CONCLUSIONS No evidence of DVT seen in any vessel visualized at this time. Right GSV compressible 3.0cm from junction. Non-compressiable below knee at ablation site. Fabiano Hurd MD (Electronically Signed) Final Date: 22 June 2023 08:57 S
== END 2023-06-22 07:38 | disposition home or self-care (01) ==
LOC: RAD 07:38
PROVIDERS: PCP Family Medicine; Visit Provider Thoracic Surgery (Cardiothoracic Vascular Surgery)
DX: I83.891 Varicose veins of right lower extremity with other complications
CPT/HCPCS: 93971

== ENCOUNTER → 2023-06-28 14:18 | Outpatient (BNVA) | payer MEDICARE, BC, SELFPAY | PROVIDERS: PCP Family Medicine; Visit Provider Nurse Practitioner Family | DX: I10 Essential (primary) hypertension (principal); I48.91 Unspecified atrial fibrillation; Z79.01 Long term (current) use of anticoagulants | CPT/HCPCS: 99214 ==

== ENCOUNTER → 2023-07-13 14:46 | Outpatient (BNVA) | payer MEDICARE, BC, SELFPAY | PROVIDERS: PCP Family Medicine; Visit Provider Thoracic Surgery (Cardiothoracic Vascular Surgery) | DX: I83.813 Varicose veins of bilateral lower extremities with pain (principal); Z79.01 Long term (current) use of anticoagulants | CPT/HCPCS: 99024 ==

== ENCOUNTER → 2023-09-02 13:19 | Outpatient (BNVA) | payer MEDICARE, BC, SELFPAY | PROVIDERS: PCP Family Medicine; Visit Provider Family Medicine | DX: N39.0 Urinary tract infection, site not specified (principal) | CPT/HCPCS: 81000 ==

== ENCOUNTER → 2023-09-06 09:01 | Outpatient (BNVA) | payer MEDICARE, BC, SELFPAY | PROVIDERS: PCP Family Medicine; Visit Provider Thoracic Surgery (Cardiothoracic Vascular Surgery) | DX: I83.813 Varicose veins of bilateral lower extremities with pain (principal) | CPT/HCPCS: 99213 ==

== ENCOUNTER → 2023-09-14 10:07 | Outpatient (BNVA) | payer MEDICARE, BC, SELFPAY | PROVIDERS: PCP Family Medicine; Visit Provider Family Medicine | DX: R31.9 Hematuria, unspecified (principal) | CPT/HCPCS: 81000 ==

== ENCOUNTER 2024-04-10 00:46 | Emergency (ER) | payer MEDICARE, BC, SELFPAY ==
[2024-04-10] VITALS (10 sets, daily range): BP systolic 94–129; BP diastolic 58–102; PULSE 58–129; RESP 16–18; TEMP 36.7; O2SAT 94–99; BMI 37.4
--- NOTE | 2024-04-10 00:59 | ECG_ITS ---
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 Measurements Intervals [place] Rate: 127 P: 0 MN: 0 QRS: 29 QRSD: 106 T: 2 QT: 290 QTc: 422 Interpretive Statements ATRIAL FIBRILLATION WITH RAPID VENTRICULAR RESPONSE LOW QRS VOLTAGE IN PRECORDIAL LEADS [QRS DEFLECTION < 1.0 mV IN CHEST LEADS] POSSIBLE ANTERIOR MYOCARDIAL INFARCTION , PROBABLY OLD [30 ms Q WAVE IN V3/V4, OR R < 0.2 mV IN V4] Compared to ECG 08/10/2020 00:13:19 Low QRS voltage now present Myocardial infarct finding now present Sinus rhythm no longer present Left ventricular hypertrophy no longer present ST (T wave) deviation no longer present Electronically Signed On 04-10-2024 18:44:35 CDT by Junito Navarro M.D. [id number]
--- NOTE | 2024-04-10 01:19 | XRR_ITS ---
PROCEDURE INFORMATION: Exam: XR Chest Exam date and time: 04/10/2024 1:54 AM Age: 69 years old Clinical indication: Pain; Chest pressure; Prior surgery; Surgery date: 6+ months; Surgery type: Bariatric SX, choley; Additional info: Cp TECHNIQUE: Imaging protocol: Radiologic exam of the chest. Views: 1 view. COMPARISON: CR XR chest 1V portable [id number] 03/13/2021 8:19 PM FINDINGS: Lungs: Few strandy opacities are seen in the left lung base likely representing atelectasis. Pleural spaces: Unremarkable. No pleural effusion. No pneumothorax. Heart/Mediastinum: Unremarkable. No cardiomegaly. Bones/joints: Unremarkable. XR/XR chest 1V portable [id number] IMPRESSION: Strandy opacities left lung base compatible with atelectasis.
[2024-04-10 01:27] LABS: Basophils % 0.5 %; Eosinophils # 0.1 10^3/uL (0.0-0.8); Eosinophils % 1.6 %; Hematocrit 45.3 % (37-53); Lymphocytes # 2.6 10^3/uL (0.8-4.8); Lymphocytes % 34.5 %; Mean Corpuscular HGB Conc 32.7 g/dL (30-55); Mean Corpuscular Hemoglobin 31.2 pg (27-33); Mean Corpuscular Volume 95.4 fl (82-101); Mean Platelet Volume 11.1 fL (7.4-10.4); Monocytes # 0.8 10^3/uL (0.2-0.9); Monocytes % 11.3 %; Neutrophils # 3.85 10^3/uL (1.8-7.7); Neutrophils % 51.8 %; Nucleated Red Blood Cells % 0 %; Platelet Count 205 10^3/cmm (157-399); Red Blood Count 4.75 10^6/uL (3.85-5.65); White Blood Count 7.44 10^3/uL (3.29-11.43)
[2024-04-10] MEDS: metoprolol tartrate 1 mg/1 mL SDV 5 mL 2.5 MG IVP (01:47)
[2024-04-10] MEDS: lidocaine 2% viscous 15 ML, aluminum-mag hydrox-simethicon 30 ML, sucralfate oral liq 1 GM PO (01:47)
[2024-04-10 01:48] LABS: Troponin(5th) Baseline 9 ng/L (0-15)
[2024-04-10 01:55] LABS: Alanine Aminotransferase 23 U/L (0-41); Albumin Level 4.1 g/dL (3.5-5.2); Alkaline Phosphatase 118 U/L (40-130); Aspartate Amino Transferase 23 U/L (0-40); Blood Urea Nitrogen 12 mg/dL (8-23); Calcium 8.7 mg/dL (8.5-10.5); Carbon Dioxide 24 mmol/L (22-29); Chloride 108 mmol/L (98-107); Creatinine Clr Calc Pharmacy 119.1178; Globulin 2.3 g/dL (1.3-4.6); Glomerular Filtration Rate 133.6 mL/min (90-130); Glucose 96 mg/dL (65-115); Lipase 54 U/L (13-60); Magnesium 2.2 mg/dL (1.7-2.3); NT Pro B Type Natriuretic Pept 508 pg/mL (0-125); Osmolality Calculated 292 mOsm/kg (285-295); Sodium 141 mmol/L (136-145); Thyroid Stimulating Hormone 1.85 uIU/mL (0.27-4.20); Total Bilirubin 0.3 mg/dL (0.15-1.2); Total Protein 6.4 g/dL (6.6-8.7)
[2024-04-10 01:58] LABS: Anion Gap 13.2 (5-19); Potassium 4.2 mmol/L (3.5-5.1)
--- NOTE | 2024-04-10 03:53 | ECG_ITS ---
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 Measurements Intervals [place] Rate: 56 P: 50 OH: 206 QRS: 36 QRSD: 105 T: 11 QT: 398 QTc: 387 Interpretive Statements SINUS BRADYCARDIA LOW QRS VOLTAGE IN PRECORDIAL LEADS [QRS DEFLECTION < 1.0 mV IN CHEST LEADS] Compared to ECG 04/10/2024 00:44:58 Atrial fibrillation no longer present Myocardial infarct finding no longer present Electronically Signed On 04-10-2024 18:55:42 CDT by Junito Navarro M.D. [id number]
[2024-04-10 04:37] LABS: Troponin 5 2HR 10.32 ng/L (0-15); Troponin 5 2HR Delta 1.32 ABS# (0-10)
--- NOTE | 2024-04-10 05:18 | ED_ITS ---
HPI - Arrhythmia/Palpitations 2 General: Chief Complaint: Arrhythmia/Palpitations Stated Complaint: irregular heartbeat and horrible indigestion Time Seen by Provider: 04/10/24 00:57 History of Present Illness: 69-year-old male gentleman with a histor y of atrial fibrillation. He does not have a history of significant coronary disease evidently. He presents with chest discomfort, palpitations on and off all day yesterday, but they were worse this morning. He checked his heart rate, and it was up to 130s and 40s at home, and irregular. He denies recent fever, cough, vomiting, etc. His discomfort has improved. He did have some indigestion type symptoms which is improved as well, but his notes that he has had quite a bit of gas and belching. Related Data Home Medications Medication Instructions Recorded Confirmed simethicone 180 mg capsule (Gas 180 mg PO BID PRN gas 08/16/20 03/07/24 Relief (simethicone)) guaifenesin 600 mg tablet, 600 mg PO Q12H PRN Cold Symptoms 08/22/20 03/07/24 extended release 12 hr (Mucinex) cetirizine 10 mg tablet (Zyrtec) 5 mg PO PRN PRN Allergy Symptoms 06/14/23 03/07/24 metoprolol succinate 50 mg 25 mg PO DAILY 06/14/23 03/07/24 tablet,extended release 24 hr Previous Rx's Medication Instructions Recorded mupirocin 2 % topical ointment 1 applic topical BID #15 grams 04/30/22 allopurinol 300 mg tablet 300 mg PO DAILY #90 tabs 06/18/22 finasteride 5 mg tablet 5 mg PO DAILY #90 tabs 06/18/22 fluticasone propionate 50 2 spray intranasal DAILY #16 grams 07/30/22 mcg/actuation nasal spray,suspension mupirocin 2 % topical ointment 1 applic topical BID #15 grams 09/14/23 isosorbide mononitrate 30 mg See Rx Instructions .Route 12/07/23 tablet,extended release 24 hr .COMPLEX #90 tabs omeprazole 40 mg capsule,delayed 40 mg PO DAILY #90 caps 01/04/24 release paroxetine HCl 20 mg tablet See Rx Instructions .Route 02/28/24 .COMPLEX #90 tabs apixaban 5 mg tablet (Eliquis) See Rx Instructions .Route 03/06/24 .COMPLEX #180 tabs Allergies Allergy/AdvReac Type Severity Reaction Status Date / Time No Known Allergies Allergy Verified 03/07/24 18:06 PFSH ED 2 PFSH: Medical History URI with cough and congestion Benign essential hypertension Hx of renal calculi Hx: recurrent pneumonia Varicose veins of both legs with edema Peripheral edema GERD (gastroesophageal reflux disease) Surgical History History of bariatric surgery Hx of cholecystectomy History of repair of rotator cuff Family History Sister CAD (coronary artery disease) Cancer Lupus Casey-Stickler syndrome Dementia Lung disease Brother Stroke Denies family history of Diabetes Clotting disorder Chronic kidney disease (CKD) Suicide Anesthesia complication Bleeding disorder Social History Smoking and tobacco/nicotine status: unknown if used tobacco/nicotine Quit status (tobacco/nicotine): has quit using Year quit tobacco: 2001 cigars [id number] Second hand smoke exposure: No Alcohol intake: never Substance/Drug Use: never Lives independently: Yes Household members: spouse Housing: House Marital status: service: No Current occupational status: employed Pets and animals: Yes Do you think of yourself as: Straight/Heterosexual Current gender identity: Male Physical Exam 2 Const: COMMON NORMALS: no acute distress GENERAL APPEARANCE: cooperative; not ill appearing and not frail appearing HENMT: COMMON NORMALS: normocephalic, atraumatic and Normal external nose present HEAD & SCALP: normocephalic and atraumatic FACE & SINUS: normal facial exam and face symmetric NOSE: Normal external nose present Eye: COMMON NORMALS: Equal, round and reactive pupils present and EOMs intact bilaterally PUPIL: Yes Equal, round and reactive pupils present Neck/C-Spine: GENERAL: Yes trachea midline Chest: CHEST: Yes Symmetrical chest wall rise Resp: COMMON NORMALS: normal respiratory effort, No retractions, No use of accessory muscles and clear to auscultation bilaterally AUSCULTATION: clear to auscultation bilaterally Cardio: COMMON NORMALS: regular rate RATE: regular rate and tachycardic RHYTHM: abnormal rhythm irregularly irregular GI: COMMON NORMALS: Normal to inspection, nondistended, normoactive bowel sounds present Extremity: COMMON NORMALS: no pedal edema Neuro: NATALIA COMA SCALE: document GCS findings Ethel coma scale eye opening: Spontaneous Natalia coma scale verbal response: Orientated Natalia coma scale motor response: Obey commands Ethel coma scale total score: 15 S ENSORY EXAM: Yes extremities (intact) Psych: COMMON NORMALS: speech normal SPEECH: Yes normal speech Skin: COMMON NORMALS: no rashes or lesions noted GENERAL SKIN EXAM: no rashes or lesions noted Course 2 Vital Signs: Vital signs: Vital Signs Temperature 98.0 F 04/10/24 00:53 Pulse Rate 68 04/10/24 05:23 Respiratory Rate 18 04/10/24 04:32 Blood Pressure 110/64 04/10/24 05:23 Pulse Oximetry 99 04/10/24 05:23 Oxygen Delivery Me thod Room Air 04/10/24 04:32 MDM - Arrhythmia/Palpitations Medical Decision Making Patient presents in rapid atrial fibrillation. He was given 2.5 mg of metoprolol, and eventually converted to normal sinus bradycardia with a rate of 55-60. He feels improved, especially after GI cocktail for indigestion. He does not have any chest discomfort. No ST wave changes on EKG. Laboratory is not remarkable including delta troponin at 2 hours of 1.3. His TSH is normal. His chest x-ray is not remarkable. With resolution of his symptoms, he will be allowed discharge. Outpatient follow-up. He will return for return of his symptoms. Lab Data 04/10/24 01:13 04/10/24 01:13 Radiology Impressions Chest X-Ray 04/10/24 01:19 IMPRESSION: Strandy opacities left lung base compatible with atelectasis. Laboratory Results WBC 7.44 10^3/uL (3.29-11.43) 04/10/24 01:13 RBC 4.75 10^6/uL (3.85-5.65) 04/10/24 01:13 Hgb 14.80 g/dL (11.27-16.99) 04/10/24 01:13 Hct 45.3 % (37-53) 04/10/24 01:13 MCV 95.4 fl (82-101) 04/10/24 01:13 MCH 31.2 pg (27-33) 04/10/24 01:13 MCHC 32.7 g/dL (30-55) 04/10/24 01:13 RDW 13.0 % (12.1-15.1) 04/10/24 01:13 Plt Count 205 10^3/cmm (157-399) 04/10/24 01:13 MPV 11.1 fL (7.4-10.4) H 04/10/24 01:13 Neut % (Auto) 51.8 % 04/10/24 01:13 Lymph % (Auto) 34.5 % 04/10/24 01:13 [place] % (Auto) 11.3 % 04/10/24 01:13 Eos % (Auto) 1.6 % 04/10/24 01:13 Baso % (Auto) 0.5 % 04/10/24 01:13 Neut # (Auto) 3.85 10^3/uL (1.8-7.7) 04/10/24 01:13 Lymph # (Auto) 2.6 10^3/uL (0.8-4.8) 04/10/24 01:13 [place] # (Auto) 0.8 10^3/uL (0.2-0.9) 04/10/24 01:13 Eos # (Auto) 0.1 10^3/uL (0.0-0.8) 04/10/24 01:13 Baso # (Auto) 0.0 10^3/uL (0.0-0.1) 04/10/24 01:13 Nucleated RBC % (auto) 0 % 04/10/24 01:13 Nucleated RBCs # 0.0 /100WBC 04/10/24 01:13 PT 12.50 SECONDS (12.1-14.9) 04/10/24 01:13 INR 0.90 (0.8-1.2) 04/10/24 01:13 APTT 31.0 SECONDS (23.9-36.7) 04/10/24 01:13 Sodium 141 mmol/L (136-145) 04/10/24 01:13 Potassium 4.2 mmol/L (3.5-5.1) 04/10/24 01:13 Chloride 108 mmol/L (98-107) H 04/10/24 01:13 Carbon Dioxide 24 mmol/L (22-29) 04/10/24 01:13 Anion Gap 13.2 (5-19) 04/10/24 01:13 BUN 12 mg/dL (8-23) 04/10/24 01:13 Creatinine 0.6 mg/dL (0.7-1.2) L 04/10/24 01:13 GFR Calculation 133.6 mL/min (90-130) H 04/10/24 01:13 Glucose 96 mg/dL (65-115) 04/10/24 01:13 Calculated Osmolality 292 mOsm/kg (285-295) 04/10/24 01:13 Calcium 8.7 mg/dL (8.5-10.5) 04/10/24 01:13 Magnesium 2.2 mg/dL (1.7-2.3) 04/10/24 01:13 Total Bilirubin 0.3 mg/dL (0.15-1.2) 04/10/24 01:13 AST 23 U/L (0-40) 04/10/24 01:13 ALT 23 U/L (0-41) 04/10/24 01:13 Alkaline Phosphatase 118 U/L (40-130) 04/10/24 01:13 Troponin T Baseline 9 ng/L (0-15) 04/10/24 01:13 Troponin T 120 Minute 10.32 ng/L (0-15) 04/10/24 04:16 Delta Troponin T 1.32 ABS# (0-10) 04/10/24 04:16 NT-Pro-B Natriuret Pep 508 pg/mL (0-125) H 04/10/24 01:13 Total Protein 6.4 g/dL (6.6-8.7) L 04/10/24 01:13 Albumin 4.1 g/dL (3.5-5.2) 04/10/24 01:13 Globulin 2.3 g/dL (1.3-4.6) 04/10/24 01:13 Lipase 54 U/L (13-60) 04/10/24 01:13 TSH 1.85 uIU/mL (0.27-4.20) 04/10/24 01:13 All radiology interpretation(s) finalized by discharge Discharge Plan Discharge Patient Disposition: Home Clinical Impression: Atrial fibrillation with RVR Condition: Stable Prescriptions: No Action simethicone [Gas Relief (simethicone)] 180 mg capsule 180 mg PO BID PRN (Reason: gas) guaifenesin [Mucinex] 600 mg tablet extended release 12hr 600 mg PO Q12H PRN (Reason: Cold Symptoms) omeprazole 40 mg capsule,delayed release(DR/EC) 40 mg PO DAILY Qty: 90 1RF allopurinol 300 mg tablet 300 mg PO DAILY Qty: 90 1RF finasteride 5 mg tablet 5 mg PO DAILY Qty: 90 0RF fluticasone propionate 50 mcg/actuation spray,suspension 2 spray intranasal DAILY Qty: 16 0RF Rx Instructions: administer into each nostril mupirocin 2 % ointment 1 applic topical BID Qty: 15 0RF isosorbide mononitrate 30 mg tablet extended release 24 hr See Rx Instructions .ROUTE .COMPLEX Qty: 90 3RF Dose Instruction: Take 1 tablet by mouth once daily Rx Instructions: Take 1 tablet by mouth once daily paroxetine HCl 20 mg tablet See Rx Instructions .ROUTE .COMPLEX Qty: 90 0RF Dose Instruction: Take 1 tablet by mouth once daily Rx Instructions: Take 1 tablet by mouth once daily Eliquis 5 mg tablet See Rx Instructions .ROUTE .COMPLEX Qty: 180 2RF Dose Instruction: TAKE 1 TABLET BY MOUTH TWICE DAILY Rx Instructions: TAKE 1 TABLET BY MOUTH TWICE DAILY mupirocin 2 % ointment 1 applic topical BID Qty: 15 0RF cetirizine [Zyrtec] 10 mg tablet 5 mg PO PRN PRN (Reason: Allergy Symptoms) metoprolol succinate 50 mg tablet extended release 24 hr 25 mg PO DAILY Discharge Orders: Discharge ED (Routine); Ordered 04/10/24 Ordered By: Vladimir Petty Referrals: Iglesia Rodriguez MD [Primary Care Provider] - 4-7 days Patient Instructions: A-fib (Atrial Fibrillation) (ED), Opioid Safety, Pain Management Activity Restrictions/Additional Instructions: Return for inability control your heart rate, return of chest discomfort, shortness of breath, fever, other concerning symptoms. Call your doctor later this morning, let them know you were here. Coding Level of Care Code ED [employer] for Shaan Dooley
== END 2024-04-10 05:24 | disposition home or self-care (01) ==
PROVIDERS: Emergency Provider Emergency Medicine; PCP Family Medicine
DX: I48.91 Unspecified atrial fibrillation (principal)
CPT/HCPCS: 36415; 71045; 80053; 83690; 83735; 83880; 84443; 84484; 85025; 85610; 85730; 93005; 96374; 99285; J3490

== ENCOUNTER → 2024-12-07 15:05 | Outpatient (BNVA) | payer MEDICARE, BC, SELFPAY | PROVIDERS: PCP Family Medicine; Visit Provider Family Medicine | DX: Z12.5 Encounter for screening for malignant neoplasm of prostate (principal) | CPT/HCPCS: G0103 ==